=== PATIENT | male | born 1990 | race Caucasian/White ===

== ENCOUNTER 2021-12-21 09:59 | Outpatient (CLI) | payer OTHER, SELFPAY ==
--- NOTE | 2021-12-21 10:05 | RAD_ITS ---
STUDY: X-RAY - LEFT ANKLE REASON FOR EXAM: Male, 31 years old. Sprain. Pain. TECHNIQUE: 3 view(s) of the ankle. COMPARISON: None. FINDINGS: Normal visualized distal tibia and fibula. Normal medial and lateral malleoli. Normal tibiotalar articulation and ankle mortise. Normal visualized talus and calcaneus. The visualized subtalar, talonavicular, calcaneocuboid and tarsal articulations are normal. The soft tissue structures are unremarkable. RAD/Ankle min 3 Views IMPRESSION: Normal x-ray examination of the ankle. Electronically Signed: Nacho Spain MD at 10:22 EST ,
== END 2021-12-21 23:59 | disposition home or self-care (01) ==
PROVIDERS: PCP Family Medicine; Referring Provider Family Medicine; Visit Provider Family Medicine
DX: S93.409A Sprain of unspecified ligament of unspecified ankle, initial encounter (principal)
CPT/HCPCS: 73610

== ENCOUNTER 2021-12-30 21:16 | Observation (INO) | payer OTHER, SELFPAY ==
[2021-12-30 21:16] VITALS: BP 143/86; PULSE 92; RESP 16; TEMP 36.4; O2SAT 99; BMI 31.5
--- NOTE | 2021-12-30 21:36 | CT_ITS ---
We are attempting to reach an attending provider to discuss findings. An addendum with communication details will be sent when the communication is complete. HISTORY: RLQ pain EXAMINATION: CT Abdomen And Pelvis W/ Contrast Injection TECHNIQUE: Helically acquired images were obtained of the abdomen and pelvis following IV contrast. A radiation dose optimization technique was used for this scan. IV Contrast dosage and agent: 100mL Isovue-300 Oral contrast: None. COMPARISON: None FINDINGS: LOWER CHEST: Lung bases with no acute findings. Visualized heart normal size. LIVER: No concerning lesion. GALLBLADDER AND BILIARY TREE: Contracted gallbladder with no calcified stones identified. No significant biliary ductal dilation. KIDNEYS AND URETERS: Normal renal size. No concerning lesion. There is no perinephric inflammation or hydronephrosis. No tract stones identified. Several small calcified pelvic phleboliths noted. ADRENAL GLANDS: Non-enlarged. SPLEEN: Normal size without discrete mass. PANCREAS: No discrete mass or peripancreatic inflammation. BOWEL: Enlarged and inflamed appendix is inferior to cecum within right iliac fossa. Appendix measures up to 10 mm diameter. No bowel obstruction. LYMPH NODES: No enlarged mesenteric or retroperitoneal lymph nodes. PERITONEUM: Trace free fluid within right iliac fossa. No free air or abscess. VESSELS: Major vessels are normal caliber and unremarkable. URINARY BLADDER: Unremarkable. REPRODUCTIVE ORGANS: No pelvic masses. ABDOMINAL WALL: Small umbilical fat hernia. BONES: Intact with no suspicious osseous lesion. CT/Abdomen/Pelvis W IV Cont ONLY IMPRESSION: Appendicitis with no evidence of perforation. Individualized dose optimization techniques were used for this CT. at 2240 Reported and signed by: Jong Nichole MD Electronically Signed: Jong Nichole MD at 22:39 EST ,
--- NOTE | 2021-12-30 21:37 | ED.VIS.GI ---
HPI HPI - GI History of Present Illness Chief Complaint: Abd Pain Informant: patient Abdominal Pain/Flank Pain Onset: Today Context: Gradual Onset Timing: Continuous Quality: Aching Location: RLQ Current Severity: Moderate Maximum Severity: Moderate Worsened by: Car ride Relieved by: Nothing Nausea/Vomiting/Emesis GI Symptom: Negative for Nausea and Vomiting Diarrhea/Melena/Hematochezia GI Symptom: Negative for Diarrhea, Melena and Hematochezia Associated Symptoms Associated Symptoms: Negative for Dysuria, Frequency, Hematuria and Urgency Narrative Narrative: Gradually worsening constant right lower quadrant pain throughout the day. No migration or radiation. Decreased appetite throughout the day. No nausea, vomiting, fevers. No blood in stool, urinary symptoms. No history of any abdominal surgeries. Never had this pain before. Does not have back pain associated with this. [facility] Medical History (Updated 12/30/21 @ 22:[address] Andres Mccurdy MD) IBS (irritable bowel syndrome) Home Medications eluxadoline [Viberzi] 100 mg PO DAILY 12/30/21 [History Last Taken Unknown] Allergy/AdvReac Type Severity Reaction Status Date / Time Penicillins [PCN] Allergy Rash Verified 12/30/21 21:18 Surgical History no surgical history no surgical history Social History Smoking Status: Never smoker ROS ROS ED Constitutional Constitutional ED: Reports anorexia; Denies chills or fever(s) Eyes Eyes: Denies change in vision or diplopia ENT ENT ED: Denies rhinorrhea or sore throat Cardiovascular Cardiovascular: Denies chest pain or palpitations Respiratory/Chest Respiratory/Chest: Denies cough or dyspnea Gastrointestinal Gastrointestinal: Reports abdominal pain; Denies diarrhea, nausea or vomiting Genitourinary Genitourinary ED: Denies dysuria or hematuria Musculoskeletal Musculoskeletal: Denies back pain or neck pain Integumentary Denies abscess or rash Neurologic Neurologic: Denies headache(s), paresthesias or weakness Psychiatric Psychiatric: Denies anxiety or suicidal thoughts EXAM Physical Exam Const Vital Signs: 12/30/21 21:16 Temperature 97.5 F L Temperature Source Temporal Pulse Rate 92 Respiratory Rate 16 Blood Pressure 143/86 H Blood Pressure Mean 105 Pulse Ox 99 Oxygen Delivery Method Room Air Positive well nourished and well developed General Appearance ED: well developed and NAD HEENT Reports moist mucous membranes normocephalic and atraumatic Eyes PERRL and EOMs intact bilaterally Neck full ROM and supple Resp normal respiratory effort and clear to auscultation bilaterally Cardio regular rate, regular rhythm and no murmurs GI non-distended GI Narrative: Tender McBurney's point mostly, also a little to the lateral right upper quadrant and a little distal toward the pelvis but mostly at McBurney's point. Mildly positive Rovsing and obturator signs, grossly positive psoas sign. Negative Alexis's. Auscultation: normoactive bowel sounds Palpation: soft Back/Spine no CVA tenderness General Back: other FROM Extremity normal to inspection General Extremety ED: Negative for edema, pulses abnormal or tenderness General Extremity: Negative for edema or pulses abnormal Neuro oriented x3, CN's II-XII intact bilaterally and no sensory deficits noted Sensorium / Orientation: awake and alert Motor Exam: strength 5/5 throughout Skin no rashes or lesions noted and no wounds MDM MDM MDM Narrative Medical decision making narrative: Work-up is consistent with acute appendicitis. Patient was given some Toradol for pain, as well as some IV fluids. He remained stable clinically and hemodynamically in the emergency department. Discussed with Dr. Sommer along with the CT results, will admit and take to the OR in the morning. Patient has a penicillin allergy so I ordered Cipro and Flagyl to be started. Lab Data Attestation: I reviewed the patient's lab results. Labs: Laboratory Results - last 24 hr 12/30/21 12/30/21 12/30/21 21:20 21:20 21:23 WBC 12.8 H RBC 4.92 Hgb 15.0 Hct 42.6 MCV 86.6 MCH 30.5 MCHC 35.2 RDW Std Deviation 38.0 RDW Coeff of Alex 12.0 Plt Count 260 MPV 9.1 Immature Gran % (Auto) 0.300 Neut % (Auto) 69.6 Lymph % (Auto) 21.4 [place] % (Auto) 6.9 Eos % (Auto) 1.5 Baso % (Auto) 0.3 Absolute Neuts (auto) 8.9 H Absolute Lymphs (auto) 2.75 Nucleated RBC % 0 Sodium 138 Potassium 3.8 Chloride 106 Carbon Dioxide 28.0 Anion Gap 4 L BUN 17 Creatinine 1.12 Estim Creat Clear Calc 103.93 Est GFR (MDRD) Af Amer 98 Est GFR (MDRD) Non-Af 81 BUN/Creatinine Ratio 15.2 Glucose 117 H Calcium 8.8 Urine Color Yellow Urine Clarity Clear Urine pH 6.5 Ur Specific [place] 1.020 Urine Protein Negative Urine Glucose (UA) Normal Urine Ketones Negative Urine Occult Blood Negative Urine Nitrite Negative Urine Bilirubin Negative Urine Urobilinogen Normal Ur Leukocyte Esterase Negative Urine RBC 0-5 SEEN Urine WBC 0-5 SEEN Ur Squamous Epith Cells 0 SEEN Urine Bacteria 0 SEEN Urine Mucus 0 SEEN Radiography Diagnostic Testing: Clinical Impression(s) from Imaging Studies Abdomen/Pelvis CT 12/30/21 21:36 IMPRESSION: Appendicitis with no evidence of perforation. Individualized dose optimization techniques were used for this CT. at 2240 Reported and signed by: Jong Nichole MD Electronically Signed: Jong Nichole MD at 22:39 EST , Discharge Plan Triage Chief Complaint: Abd Pain ED Provider: Andres Mccurdy Dx/Rx/DC Orders Clinical Impression: Acute appendicitis Prescriptions: No Action Viberzi 100 mg Tablet 100 mg PO DAILY RF: 0 Primary Care Provider: Paul Handley Referrals: Paul Handley MD [Primary Care Provider] - Disposition Disposition: Acute Care [facility]
[2021-12-30] MEDS: 0.9% Normal Saline 1,000 ML 1000 ML IV (21:45)
[2021-12-30] MEDS: Ketorolac 15 MG/ML Vial IV (21:45)
[2021-12-30 21:46] LABS: Bacteria 0 SEEN /hpf (None Seen); Mucous, Urine 0 SEEN /hpf (<or=2+); Squamous Epithelial Cells - UA 0 SEEN /hpf (0-5)
[2021-12-30 21:46] LABS: Absolute Lymphocyte Count 2.75 X10^3/uL (0.83-4.51); Absolute Neutrophil Count 8.9 X10^3/uL (2.0-7.7); Basophil# 0.04 X10^3/uL; Basophil% 0.3 % (0-1); Eosinophil# 0.19 X10^3/uL; Eosinophils% 1.5 % (0-5); Hematocrit 42.6 % (40-54); Lymphocyte # 2.75 X10^3/ul (0.83-4.51); Lymphocyte % 21.4 % (19-41); Mean Corp Hgb Conc 35.2 g/dL (32-36); Mean Corpuscular Hgb 30.5 pg (27.0-32.0); Mean Corpuscular Volume 86.6 fL (80-94); Mean Platelet Vol. 9.1 fl (6.2-12.0); Monocyte# 0.88 X10^3/uL; Monocyte% 6.9 % (0-10); NRBC Flagged by Analyzer 0 % (0-5); Neutrophil # 8.93 X10^3/uL (2.7-7.7); Neutrophil % 69.6 % (47-70); Platelet Count 260 K/mm3 (150-450); Red Blood Count 4.92 M/mm3 (4.6-6.2); White Blood Count 12.8 K/mm3 (4.4-11.0)
[2021-12-30 21:47] LABS: Color, Urine Yellow (Yellow); Glucose, Dipstick Normal (Normal); Ketone-Dipstick Negative (Negative); Leukocyte Esterase-Dipstick Negative /ul (Negative); Nitrite-Dipstick Negative (Negative); Occult Blood-Urine Negative /ul (Negative); Protein-Dipstick Negative (Negative); Urine Bilirubin Dipstick Negative (Negative); Urine Clarity Clear (Clear); Urine Urobilinogen Normal (Normal); Urine pH 6.5 (5.0 - 8.0)
[2021-12-30 21:54] LABS: Red Blood Cells-Urine 0-5 SEEN /hpf (0-5); White Blood Cells 0-5 SEEN /hpf (0-5)
[2021-12-30 22:08] LABS: Anion Gap 4 (5-15); BUN 17 mg/dL (7-18); BUN/Creat Ratio 15.2 RATIO (10-20); Calcium,Total 8.8 mg/dL (8.5-10.1); Chloride 106 mmol/L (98-107); Creatinine, Serum 1.12 mg/dL (0.70-1.30); EST Glomerular Filtration Rate 81 mL/min (>60); Est Glom Filt Rate - Afr Amer 98 mL/min (>60); Estimated Creatinine Clearance 103.93 ml/min; Glucose 117 mg/dL (74-106); Potassium 3.8 mmol/L (3.5-5.1); Sodium Level 138 mmol/L (136-145)
[2021-12-30 22:57] VITALS: BP 124/74; PULSE 89; RESP 18; TEMP 36.7; O2SAT 97
[2021-12-30 23:31] VITALS: BMI 30.9
[2021-12-30 23:50] VITALS: BP 128/69; PULSE 79; RESP 16; TEMP 37.1; O2SAT 100
[2021-12-31] VITALS (11 sets, daily range): BP systolic 93–121; BP diastolic 62–73; PULSE 62–90; RESP 12–18; TEMP 36.1–37.3; O2SAT 93–98; BMI 30.9
[2021-12-31] MEDS: Dextrose 5%/0.9% NaCl 1,000 ML 125 ML IV ×3 (00:07→19:36)
[2021-12-31] MEDS: HYDROmorphone 0.5 MG/0.5 ML SYRINGE IV ×3 (00:08→15:37)
--- NOTE | 2021-12-31 08:00 | EX.PCM.CON.S ---
Assessment & Plan Assessment/Plan (1) Acute appendicitis: QUALIFIERS: Acute appendicitis type: with localized peritonitis Appendicitis gangrene presence: without gangrene Appendicitis perforation presence: without perforation Appendicitis abscess presence: without abscess Qualified Code(s): K35.30 - Acute appendicitis with localized peritonitis, without perforation or gangrene PLAN: Plan will be perform a laparoscopic appendectomy. We reviewed the pre-operative plans with the patient. Risks and benefits of the procedure were fully explained, including but not limited to infection, neurovascular injury, continued pain, arthritis, stiffness, need for further surgery, re-injury, DVT, PE, general risks of anesthesia, and loss of the limb or life. The patient understands all the risks and does wish to proceed with written consent. HPI Consult Data Date of Consult: 12/31/21 HPI Narrative HPI Narrative: RAFA GARY, is a 31 M who presents presents with right lower quadrant abdominal pain. This gradually got worse yesterday increasing throughout the day. No migration or radiation has had a decreased appetite throughout the day no nausea vomiting or fevers. He has not noticed any blood in his stool urinary symptoms. He has had no history of abdominal surgeries never had this type of pain before this pain is not associated with anything going into his back. Work-up in the emergency department included a CAT scan which did confirm acute appendicitis without rupture [facility] Medical History IBS (irritable bowel syndrome) Home Medications eluxadoline [Viberzi] 100 mg PO DAILY 12/30/21 [History Last Taken Unknown] Allergy/AdvReac Type Severity Reaction Status Date / Time Penicillins [PCN] Allergy Rash Verified 12/30/21 21:18 Surgical History no surgical history Social History Smoking Status: Never smoker ROS Constitutional Constitutional: Reports fatigue; Denies chills or fever(s) Cardiovascular Cardiovascular: Denies chest pain Respiratory/Chest Respiratory/Chest: Denies cough or dyspnea Gastrointestinal Gastrointestinal: Reports abdominal pain; Denies constipation, diarrhea, nausea or vomiting Genitourinary Genitourinary: Denies change in urinary stream Physical Exam Const alert, oriented x3 and no apparent distress General Appearance: cooperative HEENT normocephalic and head/scalp atraumatic Eyes PERRL and EOMs intact bilaterally Resp clear to auscultation bilaterally Cardio Rate: regular rate Rhythm: regular rhythm GI Palpation: tender McBurney's point and Rovsing's sign and guarding Lab / Micro Data Result Diagrams: 12/30/21 21:20 12/30/21 21:20 Labs: Laboratory Results - last 24 hr 12/30/21 21:20: WBC 12.8 H, RBC 4.92, Hgb 15.0, Hct 42.6, MCV 86.6, MCH 30.5, MCHC 35.2, RDW Std Deviation 38.0, RDW Coeff of Alex 12.0, Plt Count 260, MPV 9.1, Immature Gran % (Auto) 0.300, Neut % (Auto) 69.6, Lymph % (Auto) 21.4, [place] % (Auto) 6.9, Eos % (Auto) 1.5, Baso % (Auto) 0.3, Absolute Neuts (auto) 8.9 H, Absolute Lymphs (auto) 2.75, Nucleated RBC % 0 12/30/21 21:20: Sodium 138, Potassium 3.8, Chloride 106, Carbon Dioxide 28.0, Anion Gap 4 L, BUN 17, Creatinine 1.12, Estim Creat Clear Calc 103.93, Est GFR (MDRD) Af Amer 98, Est GFR (MDRD) Non-Af 81, BUN/Creatinine Ratio 15.2, Glucose 117 H, Calcium 8.8 12/30/21 21:23: Urine Color Yellow, Urine Clarity Clear, Urine pH 6.5, Ur Specific [place] 1.020, Urine Protein Negative, Urine Glucose (UA) Normal, Urine Ketones Negative, Urine Occult Blood Negative, Urine Nitrite Negative, Urine Bilirubin Negative, Urine Urobilinogen Normal, Ur Leukocyte Esterase Negative, Urine RBC 0-5 SEEN, Urine WBC 0-5 SEEN, Ur Squamous Epith Cells 0 SEEN, Urine Bacteria 0 SEEN, Urine Mucus 0 SEEN Micro: Microbiology 12/31/21 00:23 Nasal Secretion SARS-CoV-2 Antigen (Rapid) - Final Radiology Impression Abdomen/Pelvis CT 12/30/21 21:36 IMPRESSION: Appendicitis with no evidence of perforation. Individualized dose optimization techniques were used for this CT. at 2240 Reported and signed by: Jong Nichole MD Electronically Signed: Jong Nichole MD at 22:39 EST , ADDENDUM: 12/30/21 2253 IMPRESSION: Appendicitis with no evidence of perforation. Individualized dose optimization techniques were used for this CT. at 2240 Reported and signed by: Jong Nichole MD N.B. : The above Results were Read Back by Jong Nichole MD to Dr. Kaz MD, and understanding confirmed on 12/30/2021 22:46:39 (ET). Electronically Signed: Jong Nichole MD at 22:39 EST ,
[2021-12-31] MEDS: Lactated Ringers 1,000 ML 15 ML IV ×2 (08:30→09:31)
--- NOTE | 2021-12-31 09:00 | APP_PTH ---
PATIENT: RAFA GARY LOC: [facility] U#:[id number] AGE/SX: 31/M ROOM: AK311 RE12/31/[address]: Dr. Marek Sigala DO : 1990 BED: 1 DIS: 01/01/2022 SPEC #: [id number] RECD: 01/01/22 07:15 STATUS: NIRAJ REAzam #: [id number] ROSY: 12/31/21 09:[address]: Minh Sommer DEPT: SURGICAL PATHOLOGY RECD BY: Vanna Junior ENTERED: 01/01/22 08:44 SP TYPE: APPENDIX OTHR DR: MD Dr. Marek Obrien DO Dr. Paul Nielsen, MD Tissues: Appendix, NOS Procedures: Surgery Specimen Level III Comments: @ Ordering doctor for SUIII edited from to DR.DPEABO Agata SANCHEZ at 01/01/22 1509 @ Submitting doctor edited from to DR.DPEABO Agata SANCHEZ at 01/01/22 1509 HEADER OPERATION: Laparoscopic appendectomy PRE-OP DIAGNOSIS: Acute appendicitis TISSUE SUBMITTED: Appendix MICROSCOPIC DIAGNOSIS Appendix, appendectomy: Acute necrotizing appendicitis. Acute serositis. AM:darius 01/02/2022 MICROSCOPIC DESCRIPTION Slides are reviewed. GROSS DESCRIPTION Received in fixative is one container labeled with the patient's name and designated appendix. The specimen consists of an appendix measuring 8.5 cm in length and 0.8 cm in average diameter. No gross perforations are evident. Serial sections reveal no mass lesions. [employer] sections are submitted in two cassettes. / AM:darius 01/01/2022 TC:2 CPT: 97701
[2021-12-31] MEDS: Bupivacaine Mpf 0.5% 30 ML VIAL (09:40)
--- NOTE | 2021-12-31 09:56 | OP.PCM_ITS ---
Problems Associated Problem List Diagnoses (1) Acute appendicitis: Report of Operation Date of Procedure: 12/31/21 Pre-Operative Diagnosis: Acute appendicitis Post-Operative Diagnosis: Same Surgery/Procedure Performed:: Laparoscopic appendectomy Surgeon: Minh Sommer e m assembler: Dionicio Bowers Type of Anesthesia: General Anesthesiologist: Marek Acosta Specimen's removed: Appendix Drains: None Estimated Blood Loss (mL): < 25 cc Description of Procedure: Patient was brought in the operating room. Placed in the supine position. Under excellent general anesthetic the abdomen was sterilely prepped and draped in usual fashion. Local was injected infraumbilically dissection was carried down to the fascia the fascia grasped with a [place] varies needle was placed inside the abdomen. The abdomen was insufflated to 15 torr. A 10/12 trocar was placed without difficulty. Suprapubic #5 trocar was placed, left lateral lower quadrant #5 trocar was placed. Both of these were placed under direct visualization without injury to underlying structures. Patient was placed in the headdown and rotated to the left position. Patient had a rather long appendix with the distal appendix being inflamed came down on the mesoappendix with the Enseal and then transected the base of the appendix with a 45 linear cutter placed the specimen specimen bag delivered through the umbilical port. Had a slight bleeder at the appendiceal stump I did touch cautery and had good hemostasis from this the mesoappendix area also look like there was good hemostasis. I ran the small bowel no Meckel's diverticulum was identified I irrigated out the pelvis there was no pus located. Trochars were removed under direct visualization good with stasis was noted. Fascia the umbilical port was closed with a [id number] stitch of 0 Vicryl. Skin incisions were closed with subcuticular stitches of 4- 0 Monocryl. Steri-Strips were applied sterile dressings were applied and the patient tolerated the procedure well. Admit VTE Documentation VTE Present on Admission: No VTE Mechan Device Prophylaxis: SCD's VTE Pharm Prophylaxis ordered?: No Reason prophylaxis not ordered:: Treatment Not Indicated
--- NOTE | 2021-12-31 10:03 | DCINST_ITS ---
Discharge Instructions Procedure Appendectomy Diet Discharge Diet: Light diet - advance as tolerated (if you have questions about your diet instructions, please talk to you doctor.) Activity Discharge Activity: May Not Drive (for 3-5 days or while taking narcotic pain meds.) May shower in (days): 1 Dressing / Incision Call your doctor if your incision/area has: Continuous Slow Oozing, Sudden Increased Bleeding, Increased Pain/ Swelling, Increased Redness and Foul Smelling Discharge Call your doctor if you observe: Fever of 101 or Higher Suture Line Care: Avoid Pulling/Pushing and Avoid Pinching/Bending Additional Dressing/Incision Instructions:: Keep dressing clean and dry. Change or remove dressing in 2 days. Leave steri strips for 1 week. May protect with a gauze bandaid. Follow Up Care Please Follow Up With: Elvia Raya PA-C When: Call office to schedule an appointment to be seen in 1 week. Test Results: Test results from this visit will be discussed in further detail at your follow-up appointment, if applicable. Discharge Plan Admission Admit Date/Time: 12/30/21 22:57 Attending Provider: Minh Sommer Primary Care Provider: Paul Handley Discharge Orders/Prescriptions Prescriptions: New oxycodone-acetaminophen [Endocet] 5-325 mg tablet 1 tab PO Q4H PRN (Reason: pain) 5 Days Qty: 20 RF: 0 No Action Viberzi 100 mg Tablet 100 mg PO DAILY RF: 0 Referrals / Follow Up: Paul Handley MD [Primary Care Provider] - Elvia Raya PA-C [PHYSICIAN ACADEMIC SERVICES COORDINATOR] -
[2021-12-31] MEDS: 0.9% Saline Lock 10 ML Syringe IV ×2 (11:21→15:37)
[2021-12-31] MEDS: Ondansetron 4 MG/2 ML Vial IV ×2 (11:21→17:10)
[2021-12-31] MEDS: oxyCODONE 5 MG Tablet 10 MG PO (13:21)
[2022-01-01 03:23] VITALS: BP 117/69; PULSE 72; RESP 16; TEMP 36.6; O2SAT 97
[2022-01-01] MEDS: Dextrose 5%/0.9% NaCl 1,000 ML 125 ML IV (04:44)
[2022-01-01] MEDS: oxyCODONE 5 MG Tablet 10 MG PO ×2 (08:11→14:53)
[2022-01-01 09:30] VITALS: BP 104/64; PULSE 85; RESP 16; TEMP 36.7; O2SAT 96
[2022-01-01] MEDS: HYDROmorphone 0.5 MG/0.5 ML SYRINGE IV (11:53)
--- NOTE | 2022-01-01 12:42 | PCM.PN.SRG ---
Subjective Subjective Pain has improved. Now complaining more of musculoskeletal incisional pain Objective Data Objective Data Dressing is dry patient appropriately tender at incisions Vital Signs: Vital Signs Temp Pulse Resp BP Pulse Ox 98.0 F 85 16 104/64 96 01/01/22 09:30 01/01/22 09:30 01/01/22 09:30 01/01/22 09:30 01/01/22 09:30 Oxygen Delivery Method Room Air Weight: 227 lb 15.327 oz Body Mass Index (BMI) 30.9 Intake & Output: Intake and Output for Last 24 Hours 12/30/21 12/31/21 01/01/22 22:59 23:59 23:59 Intake Total 2506 / 2506 Output Total Balance 2506 / 2506 Lab / Micro Data Result Diagrams: 12/30/21 21:20 12/30/21 21:20 Micro: Microbiology 12/31/21 00:23 Nasal Secretion SARS-CoV-2 Antigen (Rapid) - Final Assessment & Plan Assessment/Plan (1) Acute appendicitis: QUALIFIERS: Acute appendicitis type: with localized peritonitis Appendicitis gangrene presence: without gangrene Appendicitis perforation presence: without perforation Appendicitis abscess presence: without abscess Qualified Code(s): K35.30 - Acute appendicitis with localized peritonitis, without perforation or gangrene PLAN: We will discharge later today.
[2022-01-01 15:30] VITALS: BP 111/68; PULSE 68; RESP 16; TEMP 36.4; O2SAT 95
== END 2022-01-01 16:20 ==
LOC: ED 22:51 → MS3 12-31 10:40
PROVIDERS: Admitting Provider Surgery; Emergency Provider Emergency Medicine; PCP Family Medicine; Referring Provider Surgery
PROC: 0DTJ4ZZ Resection of Appendix, Percutaneous Endoscopic Approach (ICD-10-PCS; CPT 44970; principal; 2021-12-31 09:00)
DX: K35.30 Acute appendicitis with localized peritonitis, without perforation or gangrene (principal); K58.9 Irritable bowel syndrome, unspecified; Z79.899 Other long term (current) drug therapy
CPT/HCPCS: 44970; 00840; 74177; 80048; 81001; 85025; 87426; 88304; 96361; 96365; 96366; 96375; 96376; 99218; 99251; 99283; J7030; J7120; Q9967; A4216; C1760; G0378; G0463; J0744; J2405

== ENCOUNTER → 2022-09-18 | Outpatient (CLI) | payer OTHER, SELFPAY ==
[2022-09-18 12:37] LABS: Hemoglobin 15.4 g/dL (13.0-16.5); Mean Corp Hgb Conc 33.5 g/dL (32-36); Mean Corpuscular Hgb 29.7 pg (27.0-32.0); Mean Corpuscular Volume 88.6 fL (80-94); Mean Platelet Vol. 9.3 fl (6.2-12.0); Platelet Count 273 K/mm3 (150-450); RBC Distribution Width SD 38.8 fl (35.1-43.9); Red Blood Count 5.19 M/mm3 (4.6-6.2); White Blood Count 6.1 K/mm3 (4.4-11.0)
[2022-09-18 13:35] LABS: Anion Gap 7 (5-15); BUN 16 mg/dL (7-18); BUN/Creat Ratio 15.2 RATIO (10-20); Chloride 102 mmol/L (98-107); Creatinine, Serum 1.05 mg/dL (0.70-1.30); EST Glomerular Filtration Rate 87 mL/min (>60); Est Glom Filt Rate - Afr Amer 105 mL/min (>60); Free T3 3.8 pg/mL (2.18-3.98); Glucose 98 mg/dL (74-106); Potassium 4.6 mmol/L (3.5-5.1); Sodium Level 138 mmol/L (136-145); T4 Free Direct 1.05 ng/dL (0.76-1.46)
== END | disposition home or self-care (01) ==
LOC: MFPLAB 11:30
PROVIDERS: PCP Family Medicine; Visit Provider Nurse Practitioner Family
DX: E04.9 Nontoxic goiter, unspecified (principal)
CPT/HCPCS: 36415; 80048; 84439; 84443; 84481; 85027

== ENCOUNTER → 2023-04-09 | Outpatient (CLI) | payer OTHER, SELFPAY | END | disposition home or self-care (01) | PROVIDERS: PCP Family Medicine; Visit Provider Family Medicine | DX: N41.9 Inflammatory disease of prostate, unspecified (principal) | CPT/HCPCS: 87086; 87491; 87591 ==

== ENCOUNTER → 2023-04-26 | Outpatient (CLI) | payer OTHER, SELFPAY ==
--- NOTE | 2023-04-26 13:15 | US_ITS ---
STUDY: ABDOMINAL ULTRASOUND - RIGHT UPPER QUADRANT REASON FOR VISIT: Male, 32 years old epigastric pain TECHNIQUE: Ultrasound evaluation of the right upper quadrant was performed with real-time and static bentley-scale imaging. TECHNICAL QUALITY: Adequate. COMPARISON: None. FINDINGS: Liver: The liver measures 17.1 cm. There is increased echogenicity consistent with fatty infiltration. The bile ducts are within normal limits. There is hepatic color flow. The direction of portal flow is hepatopetal. There is no demonstrated mass lesion. Gallbladder: There is a contracted gallbladder. The gallbladder wall measures 2.8 mm. There is a negative sonographic Alexis''s sign. There is no pericholecystic fluid. There are no gallstones. Common Bile Duct (C.B.D.): The common bile duct measures 3.2 mm. Pancreas: Normal size of the head, body and tail of the pancreas. There is increased echogenicity of the pancreas. There is no demonstrated pancreatic mass or cyst. Right Kidney: Normal size of the right kidney. The right kidney measures 10.6 cm x 7.1 cm x 5.8 cm. Normal renal cortex. The right cortex measures 1.6 cm. There is no demonstrated renal mass or cyst. There is no right hydronephrosis. US/Abdomen Limited IMPRESSION: Fatty infiltration of the liver. Contracted gallbladder. Electronically Signed: Micha Velázquez MD at 14:23 EDT ,
== END | disposition home or self-care (01) ==
LOC: US 13:15
PROVIDERS: PCP Family Medicine; Visit Provider Family Medicine
DX: R10.13 Epigastric pain (principal)
CPT/HCPCS: 76705

== ENCOUNTER → 2023-06-14 | Outpatient (CLI) | payer OTHER, SELFPAY ==
[2023-06-14 10:45] LABS: AST(SGOT) 19 U/L (15-37); Alanine Aminotransfer ALT/SGPT 36 U/L (16-61); Albumin, Serum 3.7 g/dL (3.2-5.0); Alkaline Phosphatase 137 U/L (45-117); Anion Gap 5 (5-15); BUN 15 mg/dL (7-18); BUN/Creat Ratio 15.1 RATIO (10-20); Calcium,Total 8.6 mg/dL (8.5-10.1); Chloride 105 mmol/L (98-107); Cholesterol 196 mg/dL (200); Creatinine, Serum 0.99 mg/dL (0.70-1.30); EST Glomerular Filtration Rate 92 mL/min (>60); Est Glom Filt Rate - Afr Amer 111 mL/min (>60); Globulin 3.6 g/dL (2.2-4.2); Glucose 85 mg/dL (74-106); High Density Lipoprotein 33 mg/dL; PSA,Total - Annual Screen 0.67 ng/mL (0.00-4.00); Potassium 3.7 mmol/L (3.5-5.1); Protein, Total 7.3 g/dL (6.4-8.2); Sodium Level 138 mmol/L (136-145); Triglycerides 235 mg/dL; Very Low Density Lipoprotein 47 mg/dL (5-40)
== END | disposition home or self-care (01) ==
LOC: MFPLAB 08:27
PROVIDERS: PCP Family Medicine; Visit Provider Family Medicine
DX: Z00.00 Encounter for general adult medical examination without abnormal findings (principal); Z12.5 Encounter for screening for malignant neoplasm of prostate
CPT/HCPCS: 36415; 80053; 80061; 84153; G0103

== ENCOUNTER 2023-11-21 09:00 | Day surgery (SDC) | payer OTHER, SELFPAY ==
[2023-11-21] VITALS (10 sets, daily range): BP systolic 116–131; BP diastolic 68–90; PULSE 65–76; RESP 16–18; TEMP 36.2–36.8; O2SAT 92–96; BMI 32.3
[2023-11-21] MEDS: Lactated Ringers 1,000 ML 15 ML IV ×2 (09:23→13:31)
--- NOTE | 2023-11-21 10:19 | PCM.HP.BLA ---
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 Joey Bonilla MD) IBS (irritable bowel syndrome) Surgical History (Updated 10/22/23 @ 08:19 by Anabella Weiss LPN) S/P appendectomy Family History (Updated 10/22/23 @ 08:20 by Anabella Weiss LPN) Uncle Colon cancer 2022Father Thyroid disorderGrandfather Thyroid disorder Social History Smoking Status: Never smoker HPI HPI HPI: Patient is a 32-year-old male here for hernia. The patient notices hernia is at the [facility]. He has a history of laparoscopic appendectomy about 2 years ago. ROS General General: No weight change, appetite, fatigue, colon cancer, breast cancer or weakness HEENT HEENT: No difficulty swallowing, eye injury, eye surgery, swollen glands or hoarseness Endo Endocrine: No thyroid disease, diabetes mellitus, thyroid cancer, Hair loss, heat intolerance or cold intolerance Skin Skin: No rash or changing moles Musc Musculoskeletal: No back problems, arthritis, rheumatoid arthritis, gout or joint pain Cardio Cardiovascular: No murmur, pacemaker, heart disease, atrial fibrillation, high blood pressure, heart attack, heart stent, palpitations, shortness of breat with exertion or chest pain Psych Psychiatric: No depression, anxiety or hearing voices Resp Respiratory: No shortness of breath, No sleep apnea, No cough, No COPD, No asthma, No emphysema and No wheezing Gastro Gastrointestinal: Yes abdominal pain, No nausea or vomiting, No diarrhea, No constipation, No blood in stool, No acid reflux, No hemorrhoids, No ulcers, No gallbladder problem and No black,tarry stools Armen Hematologic: No blood thinners, No blood disorders, No bleeding, No anemia and No blood clots Neuro Neurologic: No system reviewed and no additional complaints, except as documented, No as per HPI, No abnormal gait, No abnormal hearing, No abnormal movements, No abnormal speech, No behavioral changes, No burning sensations, No confusion, No convulsions, No disequilibrium, No dizziness, No localized weakness, No frequent falls, No headache(s), No lack of coordination, No loss of vision, No memory loss, No numbness, No other visual disturbances, No radicular pain, No restless legs, No sensory deficit, No syncope, No tingling, No tremor(s), No weakness and No other Exam Const General: cooperative Orientation: alert and oriented x3 HENMT Head: normal to inspection Neck Neck: normal visual inspection and full ROM Chest Chest palpation & inspection: normal inspection of the chest Resp Effort & Inspection: normal respiratory effort Auscultation: clear to auscultation bilaterally Cardio Rate: regular rate Rhythm: regular rhythm GI Inspection: non-distended Palpation: soft, hernia umbilical and nontender Skin General: no rashes or lesions noted Neuro General: patient alert and patient oriented x3 Extrem General: full ROM Psych Appearance: grossly normal Mental Status: mental status grossly normal Assessment and Plan Assessment and Plan (1) Umbilical hernia: Status: Acute Qualifiers: Obstruction and gangrene presence: without obstruction or gangrene Qualified Code(s): K42.9 - Umbilical hernia without obstruction or gangrene Plan: The patient has an umbilical hernia. Unsure if this is related to his incision from his appendectomy as it appears to be right in the middle of his umbilicus and his incision is inferior to the umbilicus. I discussed umbilical hernia repair with him. I discussed using mesh if the hernia is larger than a centimeter. I discussed the risks including but not limited to bleeding, infection, injury to underlying organs such as the bowel. Joey Bonilla MD Pager: [facility] [address] [place] [address], [address] [place] [address] Office: I have examined the patient and the H&P has been reviewed. There are no clinical changes since date of exam.
[2023-11-21] MEDS: Clindamycin 900 MG/50 ML BAG 75 MG IV (11:55)
--- NOTE | 2023-11-21 12:41 | OP.PCM_ITS ---
Report of Operation Date of Procedure: 11/21/23 Pre-Operative Diagnosis: Umbilical hernia Post-Operative Diagnosis: Umbilical hernia Surgery/Procedure Performed:: Umbilical hernia repair with mesh less than 3 cm Type of Anesthesia: General/Regional Specimen's removed: None Estimated Blood Loss (mL): 5 Description of Procedure: Patient was brought back to the operating room and general anesthesia was used. The abdomen is prepped draped in usual sterile fashion. A curvilinear incision was marked superior to the umbilicus and injected with local anesthetic. Incisi on was made a scalpel and hemostasis was obtained using electrocautery. The umbilical stalk was dissected off of the hernia sac and then it was reflected. The hernia sac was reduced and the fascia was grasped and elevated. The hernia defect was about 1.5 cm. In all directions the preperitoneal space was dissected free. It was difficult inferiorly due to scar tissue from his old surgery. I was able to place a medium Ventralex ST mesh in the preperitoneal space. The mesh was then sutured to the anterior fascia using interrupted 0 PDS sutures. Next the area was irrigated and suctioned dry. There was good hemostasis. The fascia was reapproximated in a transverse fashion using interrupted 0 Nurolon sutures. The subcutaneous tissue was irrigated and suctioned. The skin was closed with interrupted 3-0 Vicryl sutures. Steri- Strips were applied. Bandage was applied. Patient tolerated the procedure well. Grafts/Implants Used: Medium Ventralex ST mesh
--- NOTE | 2023-11-21 12:43 | DCINST_ITS ---
Discharge Instructions Procedure Hernia Diet Discharge Diet: Light diet - advance as tolerated Activity Discharge Activity: May Not Drive (for 2-3 days or while taking narcotic pain meds.) and May Shower (with the bandage in place 1-2 days after surgery.) Lifting Restrictions: 15 pounds for 4 weeks. Additional Activity Instructions:: Climbing stairs is fine, walking is encouraged. Sitting in bed may be uncomfortable. Sitting up using your lateral muscles (sitting up sideways) is usually more comfortable. Do not drive, work heavy equipment of sign legal documents for 24 hours. Pain medications may cause nausea, you should typically eat light foods as you take your pain medications. Pain medications may also cause constipation. If you have difficulty with this, discuss with your doctor. Dressing / Incision Call your doctor if your incision/area has: Continuous Slow Oozing, Sudden Increased Bleeding, Increased Pain/ Swelling, Increased Redness and Foul Smelling Discharge Call your doctor if you observe: Fever of 101 or Higher Suture Line Care: Avoid Pulling/Pushing and Avoid Pinching/Bending Remove Dressing in: 2 days (Remove clear bandages in 2 days, remove Steri-Strips in 7 to 10 days.) Cleanse incision/area with: Soap & Water Follow Up Care Please Follow Up With: Joey Bonilla MD When: Please call to schedule 2 week follow up appointment. [phone] Test Results: Test results from this visit will be discussed in further detail at your follow- up appointment, if applicable. Discharge Plan Admission Attending Provider: Joey Bonilla Primary Care Provider: Paul Handley Instructions Additional Instructions / Restrictions: Alternate ibuprofen and Tylenol for pain, oxycodone for breakthrough Discharge Orders/Prescriptions Prescriptions: New oxycodone 5 mg tablet 5 - 10 mg PO Q6H PRN (Reason: pain) 5 Days Qty: 15 0RF No Action Viberzi 100 mg Tablet 100 mg PO DAILY Referrals / Follow Up: Paul Handley MD [Primary Care Provider] - Disposition Disposition (needs filled in before D/C Order can be placed): Home, Self Care
[2023-11-21] MEDS: Acetaminophen 325 MG Tablet 650 MG PO (14:08)
== END 2023-11-21 16:27 | disposition home or self-care (01) ==
LOC: SDC 09:03 → AC 09:05
PROVIDERS: PCP Family Medicine; Referring Provider Surgery; Visit Provider Surgery
PROC: (CPT 49591; principal; 2023-11-21 10:45)
DX: K42.9 Umbilical hernia without obstruction or gangrene (principal); Z87.19 Personal history of other diseases of the digestive system; Z90.49 Acquired absence of other specified parts of digestive tract
CPT/HCPCS: 49591; 00830; C1781; J7120; J2405

== ENCOUNTER → 2024-05-15 | Outpatient (CLI) | payer OTHER, SELFPAY ==
--- NOTE | 2024-05-15 15:48 | RAD_ITS ---
STUDY: X-RAY CHEST REASON FOR EXAM: Male, 33 years old. Fever and cough TECHNIQUE: 2 PA and lateral views of the chest. COMPARISON: 2014 FINDINGS: The lungs are clear and expanded. There is no demonstrated pleural abnormality. Normal size heart. Normal mediastinum and tila. Normal visualized pulmonary arteries. Normal visualized aortic arch and descending thoracic aorta. Normal visualized thoracic spine. Normal visualized ribs, clavicles, and shoulders. There is no demonstrated abnormality of the visualized soft tissue structures of the upper abdomen. RAD/Chest PA and Lateral IMPRESSION: No acute pulmonary process Electronically Signed: Benjie Bowling MD at 16:36 EDT ,
== END | disposition home or self-care (01) ==
LOC: MTRAD 15:46
PROVIDERS: PCP Family Medicine; Referring Provider Family Medicine; Visit Provider Family Medicine
DX: R05.9 Cough, unspecified (principal)
CPT/HCPCS: 71046

== ENCOUNTER → 2024-12-25 | Outpatient (CLI) | payer BC, SELFPAY ==
--- NOTE | 2024-12-25 09:55 | VDLE_ITS ---
Reason For Study Reason For Study: Swelling BLE RIGHT LEFT CFV is compressible, spontaneous, phasic, competent CFV is compressible, spontaneous, phasic, competent, and demonstrates normal augmentation. and demonstrates normal augmentation. FV is compressible, spontaneous, phasic, competent FV is compressible, spontaneous, phasic, competent and demonstrates normal augmentation. and demonstrates normal augmentation. POP V is compressible, spontaneous, phasic, competent POP V is compressible, spontaneous, phasic, competent and demonstrates normal augmentation. and demonstrates normal augmentation. T/P Trunk is compressible. T/P Trunk is compressible. PTV is compressible. PTV is compressible. RT PerV is compressible. LT PerV is compressible. SFJ is competent and measures 0.72cm x 0.72 cm. SFJ is competent and measures 0.49cm x 0.50 cm. GSV proximal thigh measures 0.64cm x 0.67 cm. GSV proximal thigh measures 0.47cm x 0.44 cm. GSV at knee measures 0.47cm x 0.57 cm. GSV at knee measures 0.25cm x 0.25 cm. GSV above knee is INCOMPETENT for greater than 0.5 GSV above knee is INCOMPETENT for greater than 0.5 seconds. seconds. GSV below knee is competent. GSV below knee is competent. SSV mid calf is competent and measures 0.12cm x 0.14 SSV mid calf is competent and measures 0.24cm x 0.28 cm. cm. Rt GSV in the calf becomes smaller with thickened Lt GSV in the calf becomes smaller with thickened vein uribe. vein uribe. Procedure This is a venous duplex using B-mode, color flow and spectral Doppler. Exam performed in department. Patient was scanned in reverse Trendelenburg position during reflux assessment. A preliminary report was called and/or faxed to Norah CORNEJO. VL/Venous Duplex US - Low Extrem Interpretation Summary Deep veins of the bilateral lower extremity are patent and compressible segment ally. There is no evidence of bilateral lower extremity deep vein thrombosis. The bilateral great saphenous veins appea r patent and compressible segmentally. Positive for reflux in the right great saphenous vein above the knee Positive for reflux in the left great saphenous vein above the knee Ordering Physician: Norah Kan Referring Physician: Norah Kan Performed By: Michelle Sal, REBECCA, RVT
== END | disposition home or self-care (01) ==
LOC: CVS 09:54
PROVIDERS: PCP Family Medicine; Referring Provider Physician Assistant; Visit Provider Physician Assistant
DX: I83.813 Varicose veins of bilateral lower extremities with pain (principal); I87.2 Venous insufficiency (chronic) (peripheral)
CPT/HCPCS: 93970

== ENCOUNTER → 2025-01-12 | Outpatient (CLI) | payer BC, SELFPAY ==
--- NOTE | 2025-01-12 10:54 | VDLE_ITS ---
Reason For Study Reason For Study: Pain RIGHT LEFT GSV is normal. CFV is compressible, spontaneous, phasic, competent, CFV is compressible, spontaneous, phasic, competent and demonstrates normal augmentation. and demonstrates normal augmentation. FV is compressible, spontaneous, phasic, competent and demonstrates normal augmentation. POP V is compressible, spontaneous, phasic, competent and demonstrates normal augmentation. T/P Trunk is compressible. PTV is compressible. RT PerV is compressible. Procedure This is a venous duplex using B-mode, color flow and spectral Doppler. Exam performed in department. A preliminary report was called and/or faxed to CLEMENTE Montanez. VL/Venous Duplex US, Unilateral Interpretation Summary Deep veins of the right lower extremity are patent and compressible segmentally . There is no evidence of right lower extremity deep vein thrombosis. The right great saphenous vein appears patent a nd compressible segmentally. Ordering Physician: Norah Kan Referring Physician: Paul Handley Performed By: Sisi Avalos RVT
== END | disposition home or self-care (01) ==
LOC: CVS 10:53
PROVIDERS: PCP Family Medicine; Referring Provider Physician Assistant; Visit Provider Physician Assistant
DX: I83.813 Varicose veins of bilateral lower extremities with pain (principal); I87.2 Venous insufficiency (chronic) (peripheral); R60.0 Localized edema; M79.604 Pain in right leg
CPT/HCPCS: 93971

== ENCOUNTER → 2025-04-29 | Outpatient (CLI) | payer BC, SELFPAY ==
--- OUTSIDE RECORDS SUMMARY | 2025-04-29 10:08 | XMS RPT_ITS | CCD ---
Author Organization [facility] CliniSyct Care Team Providers Care Plate Washer Name Role Phone Paul Handley MD Primary Care Provider [phone] Blaine Chavarria Unavailable Unavailable Unavailable MD BLAIEN CHAVARRIA Primary Care Unavailabl e MD BLAINE CHAVARRIA Attending Unavailabl e MD BLAINE CHAVARRIA Referring Unavailabl e Chavarria II, Dr. Blaine Basurto Primary Care Unavai lable Chavarria II, Dr. Blaine Basurto Attending Unavai lable Chavarria II, Dr. Blaine Basurto Referring Unavai labDr. Paul Marrufo Primary Care Provider Dr. Paul Handley Referring Provider Dr. Joey Bonilla Attending Provider Dr. Joey Bonilla Referring Provider [phone] Dr. Joey Bonilla Other Provider Emmanuelle FONSECA, Dr. Miller Primary Care Provider Dr. Paul Handley MD Referring Provider Norah Winston Attending Provider Norah Winston Referring Provider Jessy FONSECA, Dr. Jara Attending Provider Paul Handley Referring Unavailable Paul Handley Primary Care Unavailable Norah Kan Attending Unavailable Marek Jiménez Attending Unavailable Loreta, Norah Referring Unavailable Paul Handley Primary Care Unavailable Marek Jiménez Attending Unavailable Norah Kan Referring Unavailable Paul Handley Primary Care Unavailable Paul Handley Primary Care Unavailable Paul Handley Attending Unavailable Paul Handley Referring Unavailable Kan, Norah Referring Unavailable Paul Handley Primary Care Unavailable Norah Kan Attending Unavailable Norah Kan Referring Unavailable Norah Kan Attending Unavailable Paul Handley Primary Care Unavailable Norah Kan Attending Unavailable Paul Handley Primary Care Unavailable Paul Handley Referring Unavailable Allergies Allergy Classification Reported Allergen(s) Allergy Type Date of Onset Reaction(s) Facility (1 source) Penicillins Drug Allergy 07-11-2012 Rash [facility] Work Phone: (7 sources) Penicillins Allergy to substance 12-30-2021 [facility] (3 sources) Penicillins; Translations: [Penicillins] Allergy to drug (finding) [facility] Work Phone: (1 source) Penicillins Drug allergy (disorder) 12-29-2024 [facility] Repository Medications Current Medications Medication Drug Class(es) Dates Sig (Normalized) Sig (Original) eluxadoline 100 mg oral tablet (8 sources) mu-Opioid Receptor Agonist Start: 12-30-2021 take 1 tablet by mouth once daily Eluxadoline (Viberzi) 100 mg Tablet Active 100 mg PO DAILY December 30, 2021 1:00am Start: 11-17-2021 take 1 tablet by lyle th twice daily VIBERZI 100 mg tab Take 100 mg by mouth twice daily. 0 11/17/2021 Active Comment on above: Take 100 mg by mouth twice daily. Completed/Discontinued Medications Medication Drug Class(es) Dates Sig (Normalized) Sig (Original) acetaminophen 325 mg / HYDROcodone bitartrate 5 mg oral tablet (1 source) Opioid Agonist Start: 07-15-2012 End: 01-08-2022 take 1 tablet by mouth every six hours as needed hydrocodone-aceta minophen (NORCO) 5-325 mg per tablet Take 1 tablet by mouth every 6 hours as needed for Pain. 35 tablet 0 07/15/2012 01/08/2022 Discontinued Comment on above: Take 1 tablet by lyle th every 6 hours as needed for Pain. acetaminophen 325 mg / oxyCODONE hydrochloride 5 mg oral tablet (7 sources) Opioid Agonist Start: 12-31-2021 End: 10-22-2023 Oxycodone-Acetami nophen (Endocet) 5-325 mg tablet Discontinued 1 {tbl} PO Q4H as needed for pain 20 5 December 31, 2021 Natalie 2nd, 2024 9:22am ibuprofen 600 mg oral tablet (3 sources) Nonsteroidal Anti-inflammatory Drug Start: 04-17-2023 take 1 tablet by mouth twice daily Ibuprofen 600 MG Oral Tablet Take 1 tablet twice daily Quantity: 20 Refills: 0 Ordered: 17-Apr-2023 Blaine Chavarria II, MD Start : 17-Apr-2023 Active oxyCODONE hydrochloride 5 mg oral tablet (3 sources) Opioid Agonist Start: 11-21-2023 End: 12-01-2024 take 5-10 mg by mouth every six hours as needed for pain Oxycodone 5 mg tablet Discontinued 5 - 10 mg PO EVERY 6 HOURS as needed for pain 04 03November 21, 2023 December 01, 2024 12:21pm sulfamethoxazole 800 mg / trimethoprim 160 mg oral tablet (3 sources) Dihydrofolate Reductase Inhibitor Antibacterial, Sulfonamide Antimicrobial Start: 04-17-2023 take 1 tablet by mouth every twelve hours Sulfamethoxazole- Trimethoprim 800-160 MG Oral Tablet TAKE 1 TABLET Every twelve hours Quantity: 20 Refills: 0 Ordered: 17-Apr-2023 Blaine Chavarria II, MD Start : 17-Apr-2023 Active tamsulosin hydrochloride 0.4 mg oral capsule (3 sources) alpha-Adrenergic Brenna Start: 04-17-2023 take 1 capsule by mouth at bedtime Tamsulosin HCl - 0.4 MG Oral Capsule TAKE 1 CAPSULE Bedtime Quantity: 10 Refills: 0 Ordered: 17-Apr-2023 Blaine Chavarria II, MD Start : 17-Apr-2023 Active Problems Active Problems Problem Classification Problem Date Documented Date Episodic/Chronic Abdominal hernia (4 sources) Umbilical hernia; Translations: [Umbilical hernia without obstruction or gangrene] 10-22-2023 Episodic Appendicitis and other appendiceal conditions (7 sources) Acute appendicitis; Translations: [Unspecified acute appendicitis] 12-31-2021 Episodic Diverticulosis and diverticulitis (1 source) Diverticulosis of large intestine without perforation or abscess without bleeding; Translations: [Dvrtclos of lg int w/o perforation or abscess w/o bleeding] Onset: 05-01-2023 Chronic Genitourinary symptoms and ill-defined conditions (10 sources) Dysuria; Translations: [Dysuria] Onset: 05-01-2023 Episodic Inflammatory conditions of male genital organs (3 sources) Prostatitis; Translations: [Prostatitis, unspecified] Episodic Malaise and fatigue (3 sources) Fatigue; Translations: [Other malaise and fatigue] Episodic Other aftercare (1 source) Surgical follow-up; Translations: [Encounter for other specified surgical aftercare] Episodic Other diseases of veins and lymphatics (2 sources) Vascular insufficiency; Translations: [Venous insufficiency (chronic) (peripheral)] 12-01-2024 Episodic Unclassified (1 source) Cough, unspecified; Translations: [Cough, unspecified] Onset: 06-09-2024 Varicose veins of lower extremity (7 sources) Varicose veins of lower extremity; Translations: [Varicose veins of bilateral lower extremities with pain] Onset: 01-18-2025 12-01-2024 Episodic Past or Other Problems Problem Classification Problem Date Documented Da te Episodic/Chronic Viral infection (1 source) Verruca vulgaris; Translations: [Viral wart, unspecified] Onset: 07-29-2012 07-29-2012 Episodic Results Test Name Value Interpretation Reference Range Facility Venous Duplex US, Unilateral on 01-12-2025 Venous Duplex US, Unilateral [facility] [address] [place] [address] Venous Duplex US, Unilateral 01/12/25 1056 MR#: [id number] Acct: [id number] Name: RAFA GARY Rep #: [id number] : 1990 34 From: Marek Jiménez MD Attending Dr: SHAHAB Montanez Status: REG CLI Ordering Dr: Norah Kan Date: 01/12/25 Location: [facility] Sex: M C Admitted: Reason For Study Reason For Study: Pain RIGHT LEFT GSV is normal. CFV is compressible, spontaneous, phasic, competent, CFV is compressible, spontaneous, phasic, competent and demonstrates normal augmentation. and demonstrates normal augmentation. FV is compressible, spontaneous, phasic, competent and demonstrates normal augmentation. POP V is compressible, spontaneous, phasic, competent and demonstrates normal augmentation. T/P Trunk is compressible. PTV is compressible. RT PerV is compressible. Procedure This is a venous duplex using B-mode, color flow and spectral Doppler. Exam performed in department. A preliminary report was called and/or faxed to SHAHAB Montanez. VL/Venous Duplex US, Unilateral Interpretation Summary Deep veins of the right lower extremity are patent and compressible segmentally. There is no evidence of right lower extremity deep vein thrombosis. The right great saphenous vein appears patent and compressible segmentally. Ordering Physician: Norah Kan Referring Physician: Paul Handley Performed By: Sisi Avalos RVT 01/12/25 1523 Date Marek Jiménez MD CC: SHAHAB Montanez; Dr. Paul Handley MD Date Dictated: 01/12/25 1056 Date Transcribed: 01/12/25 152 Tug Master: Signed Normal [facility] Venous duplex ultrasound rep ortOrdered By: Marek Jiménez on 01-12-[address] [facility] [address] [place] [address] Venous Duplex US, Unilateral 01/12/25 1056 MR#: [id number] Acct: [id number] Name: RAFA GARY Rep #:[id number] : 1990 34 From: Marek Flores Attending Dr: SHAHAB Montanez Stat us: REG CLI Ordering Dr: Norah Kan Date: Location: [facility]S Sex: M C Admitted: Reason For Study Reason For Study: Pain RIGHT LEFT GSV is normal. CFV is compressible, spontaneous, phasic, competent, CFV is compressible, spontaneous, phasic, competent and demonstrates normal augmentation. and demonstrates normal augmentation. FV is compressible, spontaneous, phasic, competent and demonstrates normal augmentation. POP V is compressible, spontaneous, phasic, competent and demonstrates normal augmentation. T/P Trunk is compressible. PTV is compressible. RT PerV is compressible. Procedure This is a venous duplex using B-mode, color flow and spectral Doppler. Exam performed in department. A preliminary report was called and/or faxed to SHAHAB Montanez. VL/Venous Duplex US, Unilateral Interpretation Summary Deep veins of the right lower extremity are patent and compressible segmentally.There is no evidence of right lower extremity deep vein thrombosis. The right great saphenous vein appears patent and compressible segmentally. Ordering Physician: Norah Kan Referring Physician: Paul Handley Performed By: Sisi Avalos RVT 01/12/25 1523 Date _ Marek Jiménez MD CC: SHAHAB Montanez; Dr. Paul Handley MD ~ Date Dictated: 01/12/25 1056 Date Transcribed: 01/12/25 1523 Tug Master: Signed [facility] Work Phone: MR/Shayna 12-29-2024 /KATYA [facility] [address] [place], [place] [address]ric. [address] [place] [address] OFFICE VISIT Date of Service: 12/29/24 MR#: [id number] Acct: [id number] Name: RAFA GARY Rep #: [id number] : 1990 Provider: SHAHAB Montanez Age/Sex: 34/M Location: [facility] Status: Signed Intake Vital Signs 11/21/23 09:24 12/29/24 08:44 Height 6 ft Weight: 229 lb BP 121/70 H Blood Pressure Location Lt brachial Position Sitting Respiration 16 Pulse 82 Pulse Source Monitor Temp 97.8 F Temp Source Temporal Pulse Oximetry (%) 97 Oxygen Delivery Method room air Intake Visit Reasons: Discuss US Is patient in pain?: Yes Allergies Penicillins (PCN) Allergy (Verified 12/29/24 08:46) Rash Medications ???Medication ???Instructions ???Recorded ???Confirmed ???Type eluxadoline 100 mg tablet (Viberzi) 100 mg PO DAILY 12/30/21 History Have you fallen in the past year?: Yes PFSH Medical History Wears glasses Wears dentures History of IBS Non-smoker Leg cramps PONV (postoperative nausea and vomiting) Umbilical hernia Acute appendicitis IBS (irritable bowel syndrome) Surgical History History of umbilical hernia repair History of hand surgery S/P appendectomy Family History Uncle Colon cancer 2022 Father Thyroid disorder Grandfather Thyroid disorder Social History Smoking Status: Never smoker HPI HPI HPI: RAFA GARY, is a 34 M who presents to the office today for follow-up of symptomatic varicose veins. He has had venous reflux study which revealed bilateral above-knee GSV incompetence, bilateral below-knee GSVs small in caliber with wall thickening; no other abnormalities. He has been wearing compression stockings as directed without much improvement in his symptoms. He continues to note aching/throbbing worst at the end of the day. ROS General General: No weight change, appetite, fatigue, colon cancer, breast cancer or weakness HEENT HEENT: No difficulty swallowing, eye injury, eye surgery, swollen glands or hoarseness Endo Endocrine: No thyroid disease, diabetes mellitus, thyroid cancer, Hair loss, heat intolerance or cold intolerance Skin Skin: No rash or changing moles Musc Musculoskeletal: No back problems, arthritis, rheumatoid arthritis, gout or joint pain Cardio Cardiovascular: No murmur, pacemaker, heart disease, atrial fibrillation, high blood pressure, heart attack, heart stent, palpitations, shortness of breath with exertion or chest pain Psych Psychiatric: Yes anxiety; No depression or hearing voices Resp Respiratory: No shortness of breath, No sleep apnea, No cough, No COPD, No asthma, No emphysema and No wheezing Gastro Gastrointestinal: No abdominal pain, No nausea or vomiting, No diarrhea, No constipation, No blood in stool, No acid reflux, No hemorrhoids, No ulcers, No gallbladder problem and No black,tarry stools Armen Hematologic: No blood thinners, No blood disorders, No bleeding, No anemia and No blood clots Neuro Neurologic: No system reviewed and no additional complaints, except as documented, No as per HPI, No abnormal gait, No abnormal hearing, No abnormal movements, No abnormal speech, No behavioral changes, No burning sensations, No confusion, No convulsions, No disequilibrium, No dizziness, Yes localized weakness, No frequent falls, No headache(s), No lack of coordination, No loss of vision, No memory loss, Yes numbness, No other visual disturbances, No radicular pain, No restless legs, No sensory deficit, No syncope, Yes tingling, No tremor(s), No weakness and No other Exam Const General: cooperative, comfortable and no acute distress Orientation: alert, awake and oriented x3 HENMT Head: normal to inspection, normocephalic and atraumatic Ears: hearing grossly normal bilaterally and external ears normal Nose: external nose normal Eyes General: appearance normal, both eyes and all related structures EOM: EOM intact bilaterally Neck Neck: normal visual inspection and trachea midline Carotids: no bruits Resp Effort Inspection: normal respiratory effort, able to speak in complete sentences, not labored, no respiratory distress, no retractions, no stridor and no use of accessory muscles Auscultation: clear to auscultation bilaterally Cardio Rate: regular rate Rhythm: regular rhythm Heart Sounds: no murmurs Bruits: no carotid bruits Pulses: brachial pulses present and radial pulses present Skin General: no rashes or lesions noted Trauma: no lacerations or abrasions Wounds: no wounds Neuro General: gait normal, (more content not included)... Normal [facility] Venous duplex ultrasound rep ortOrdered By: Marek Jiménez on 12-28-[address] [facility] [address] [place] [address] Venous Duplex US - Low Extrem 12/25/24 1014 MR#: [id number] Acct: [id number] Name: RAFA GARY Rep #:[id number] : 1990 34 From: Marek Flores Attending Dr: SHAHAB Montanez Stat us: REG CLI Ordering Dr: Norah Kan Date: Location: CVS Sex: M C Admitted: Reason For Study Reason For Study: Swelling BLE RIGHT LEFT CFV is compressible, spontaneous, phasic, competent CFV is compressible, spontaneous, phasic, competent, and demonstrates normal augmentation. and demonstrates normal augmentation. FV is compressible, spontaneous, phasic, competent FV is compressible, spontaneous, phasic, competent and demonstrates normal augmentation. and demonstrates normal augmentation. POP V is compressible, spontaneous, phasic, competent POP V is compressible, spontaneous, phasic, competent and demonstrates normal augmentation. and demonstrates normal augmentation. T/P Trunk is compressible. T/P Trunk is compressible. PTV is compressible. PTV is compressible. RT PerV is compressible. LT PerV is compressible. SFJ is competent and measures 0.72cm x 0.72 cm. SFJ is competent and measures 0.49cm x 0.50 cm. GSV proximal thigh measures 0.64cm x 0.67 cm. GSV proximal thigh measures 0.47cm x 0.44 cm. GSV at knee measures 0.47cm x 0.57 cm. GSV at knee measures 0.25cm x 0.25 cm. GSV above knee is INCOMPETENT for greater than 0.5 GSV above kneeis INCOMPETENT for greater than 0.5 seconds. seconds. GSV below knee is competent. GSV below kneeis competent. SSV mid calf is competent and measures 0.12cm x 0.14 SSV mid calf is competent and measures 0.24cm x 0.28 cm. cm. Rt GSV in the calf becomes smaller with thickened Lt GSV in the calf becomes smaller with thickened vein uribe. vein uribe. Procedure This is a venous duplex using B-mode, color flow and spectral Doppler. Exam performed in department. Patient was scanned in reverse Trendelenburg position during reflux assessment. A preliminary report was called and/or faxed to Norah CORNEJO. VL/Venous Duplex US - Low Extrem Interpretation Summary Deep veins of the bilateral lower extremity are patent and compressible segmentally. There is no evidence of bilateral lower extremity deep vein thrombosis. The bilateral great saphenous veins appearpatent and compressible segmentally. Positive for reflux in the right great saphenous vein above the knee Positive for reflux in the left great saphenous vein above the knee Ordering Physician: Norah Kan Referring Physician: Norah Kan Performed By: Michelle Sal, REBECCA, RVT 12/28/24 1536 Date _ Marek Jiménez MD CC: SHAHAB Montanez; Dr. Paul Handley MD ~ Date Dictated: 12/25/24 1014 Date Transcribed: 12/28/24 1536 Tug Master: Signed [facility] Work Phone: Venous Duplex US - Low Extre [facility] 12-25-2024 Venous Duplex US - Low Extrem [facility] [address] [place] [address] Venous Duplex US - Low Extrem 12/25/24 1014 MR#: [id number] Acct: [id number] Name: RAFA GARY Rep #: [id number] : 1990 34 From: Marek Jiménez MD Attending Dr: SHAHAB Montanez Status: REG CLI Ordering Dr: Norah Kan Date: 12/25/24 Location: CVS Sex: M C Admitted: Reason For Study Reason For Study: Swelling BLE RIGHT LEFT CFV is compressible, spontaneous, phasic, competent CFV is compressible, spontaneous, phasic, competent, and demonstrates normal augmentation. and demonstrates normal augmentation. FV is compressible, spontaneous, phasic, competent FV is compressible, spontaneous, phasic, competent and demonstrates normal augmentation. and demonstrates normal augmentation. POP V is compressible, spontaneous, phasic, competent POP V is compressible, spontaneous, phasic, competent and demonstrates normal augmentation. and demonstrates normal augmentation. T/P Trunk is compressible. T/P Trunk is compressible. PTV is compressible. PTV is compressible. RT PerV is compressible. LT PerV is compressible. SFJ is competent and measures 0.72cm x 0.72 cm. SFJ is competent and measures 0.49cm x 0.50 cm. GSV proximal thigh measures 0.64cm x 0.67 cm. GSV proximal thigh measures 0.47cm x 0.44 cm. GSV at knee measures 0.47cm x 0.57 cm. GSV at knee measures 0.25cm x 0.25 cm. GSV above knee is INCOMPETENT for greater than 0.5 GSV above knee is INCOMPETENT for greater than 0.5 seconds. seconds. GSV below knee is competent. GSV below knee is competent. SSV mid calf is competent and measures 0.12cm x 0.14 SSV mid calf is competent and measures 0.24cm x 0.28 cm. cm. Rt GSV in the calf becomes smaller with thickened Lt GSV in the calf becomes smaller with thickened vein uribe. vein uribe. Procedure This is a venous duplex using B-mode, color flow and spectral Doppler. Exam performed in department. Patient was scanned in reverse Trendelenburg position during reflux assessment. A preliminary report was called and/or faxed to Norah CORNEJO. VL/Venous Duplex US - Low Extrem Interpretation Summary Deep veins of the bilateral lower extremity are patent and compressible segmentally. There is no evidence of bilateral lower extremity deep vein thrombosis. The bilateral great saphenous veins appear patent and compressible segmentally. Positive for reflux in the right great saphenous vein above the knee Positive for reflux in the left great saphenous vein above the knee Ordering Physician: Norah Kan Referring Physician: Norah Kan Performed By: Michelle Sal, REBECCA, RVT 12/28/24 1536 Date Marek Jiménez MD CC: SHAHAB Montanez; Dr. Paul Handley MD Date Dictated: 12/25/24 1014 Date Transcribed: 12/28/24 1536 Tug Master: Signed [facility] MR/[facility]MS.Son 12-01-2024 /BMS.[facility] [address] [facility] [place] [address] OFFICE VISIT Date of Service: 12/01/24 MR#: [id number] Acct: [id number] Name: RAFA GARY Rep #: [id number] : 1990 Provider: SHAHAB Montanez Age/Sex: 34/M Location: [facility] Status: Signed Intake Vital Signs 11/21/23 09:24 12/01/24 11:32 Height 6 ft Weight: 233 lb BP 131/80 H Blood Pressure Location Lt brachial Position Sitting Respiration 16 Pulse 79 Pulse Source Monitor Temp 98.2 F Temp Source Temporal Pulse Oximetry (%) 96 Oxygen Delivery Method room air Intake Visit Reasons: NEW PATIENT: Varicose Veins Chief Complaint: establish care Is patient in pain?: Yes Allergies Penicillins (PCN) Allergy (Verified 12/01/24 11:36) Rash Medications ???Medication ???Instructions ???Recorded ???Confirmed ???Type eluxadoline 100 mg tablet (Viberzi) 100 mg PO DAILY 12/30/21 History Have you fallen in the past year?: Yes PFSH Medical History Wears glasses Wears dentures History of IBS Non-smoker Leg cramps PONV (postoperative nausea and vomiting) Umbilical hernia Acute appendicitis IBS (irritable bowel syndrome) Surgical History History of umbilical hernia repair History of hand surgery S/P appendectomy Family History Uncle Colon cancer 2022 Father Thyroid disorder Grandfather Thyroid disorder Social History Smoking Status: Never smoker HPI HPI HPI: RAFA GARY, is a 34 M who presents to the office today for evaluation of symptomatic lower extremity varicose veins as referred from his PCP Dr. Handley. He reports that over the last year he has noticed more visible/prominent veins in his lower extremities, right worse than left. Over the last several weeks he has also noticed increased discomfort in his RLE including aching/throbbing in his R calf which gets worse as the day goes on. 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 He does notice some associated swelling which is also worst at the end of the day, typically improves by morning. He does not have any wounds. He has not had any acute redness, warmth, or tenderness. He has been wearing some nonmeasured compression stockings without much benefit for the last 4-6 weeks, has some measured stockings ordered but has not yet received them. He denies any history of prior venous interventions, VTE. He has had hernia repair and appendectomy, no other abdominal procedures. He has had some episodes of back pain but nothing chronic, no known spine disease. He is not diabetic. He does not smoke. ROS General General: No weight change, appetite, fatigue, colon cancer, breast cancer or weakness HEENT HEENT: No difficulty swallowing, eye injury, eye surgery, swollen glands or hoarseness Endo Endocrine: No thyroid disease, diabetes mellitus, thyroid cancer, Hair loss, heat intolerance or cold intolerance Skin Skin: No rash or changing moles Musc Musculoskeletal: No back problems, arthritis, rheumatoid arthritis, gout or joint pain Cardio Cardiovascular: No murmur, pacemaker, heart disease, atrial fibrillation, high blood pressure, heart attack, heart stent, palpitations, shortness of breat with exertion or chest pain Psych Psychiatric: Yes anxiety; No depression or hearing voices Resp Respiratory: No shortness of breath, No sleep apnea, No cough, No COPD, No asthma, No emphysema and No wheezing Gastro Gastrointestinal: No abdominal pain, No nausea or vomiting, No diarrhea, No constipation, No blood in stool, No acid reflux, No hemorrhoids, No ulcers, No gallbladder problem and No black,tarry stools Armen Hematologic: No blood thinners, No blood disorders, No bleeding, No anemia and No blood clots Neuro Neurologic: No system reviewed and no additional complaints, except as documented, No as per HPI, No abnormal gait, No abnormal hearing, No abnormal movements, No abnormal speech, No behavioral changes, No burning sensations, No confusion, No convulsions, No disequilibrium, No dizziness, Yes localized weakness, No frequent falls, No headache(s), No lack of coordination, No loss of vision, No memory loss, No numbness, No other visual disturbances, No radicular pain, No restless legs, No sensory deficit, No syncope, Yes tingling, No tremor(s), No weakness and No other Exam Const General: cooperative, comfortable and no acute distress Orientation: alert, awake and oriented x3 HENMT Head: normal to inspection, normocephalic and atraumatic Ears: hea (more content not included)... Normal [facility] Chest PA and Lateralon 05-15 Chest PA and Lateral [facility] Imaging Services [address] [place] [address] Chest PA and Lateral MR#: [id number] Acct: [id number] Name: RAFA GARY Rep #: [id number] : 1990 M 33 From: Gabriel Bowling MD PCP: Dr. Paul Handley MD Status: [facility] Study: Chest PA and Lateral Date of Exam: 05/15/24 Exam# [id number] Ordering Dr: Paul Handley MD [id number] STUDY: X-RAY CHEST REASON FOR EXAM: Male, 33 years old. Fever and cough TECHNIQUE: 2 PA and lateral views of the chest. COMPARISON: 2014 FINDINGS: The lungs are clear and expanded. There is no demonstrated pleural abnormality. Normal size heart. Normal mediastinum and tila. Normal visualized pulmonary arteries. Normal visualized aortic arch and descending thoracic aorta. Normal visualized thoracic spine. Normal visualized ribs, clavicles, and shoulders. There is no demonstrated abnormality of the visualized soft tissue structures of the upper abdomen. RAD/Chest PA and Lateral IMPRESSION: No acute pulmonary process Electronically Signed: Benjie Bowling MD at 16:36 EDT , CC: Dr. Paul Handley MD Tug Master: Signed Normal [facility] Basophil percentageOrdered B y: Paul Handley on 06-14-2023 Bilirubin [Mass/Vol] 0.30 mg/dL 0.20-1.00 [facility] Comment on above: For patients on eltr ombopag therapy, use of Dimension [place] TBIL is not recommended. Chloride [Moles/Vol] 105 mmol/L 98-107 [facility] Cholesterol [Mass/Vol] 196 mg/dL <200 [facility] Comment on above: <200 mg/dL Desirable 200-240 mg/dL Borderline >240 mg/dL High Risk Glucose [Mass/Vol] 85 mg/dL 74-106 [facility] Potassium [Moles/Vol] 3.7 mmol/L 3.5-5.1 [facility] Protein [Mass/Vol] 7.3 g/dL 6.4-8.2 [facility] Sodium [Moles/Vol] 138 mmol/L 136-145 [facility] Triglyceride [Mass/Vol] 235 mg/dL <199 [facility] Comment on above: The drugs N-Acetylcy steine and Metamizole may falsely depress this assay.Serum Triglycerides Reference Interval Normal <150 mg/dL Borderline high 150 - 199 mg/dL High 200 - 499 mg/dL Very High > or = 500 mg/dL Laboratory - Chemistry and C hemistry - challengeOrdered By: Paul Handley on 06-14-2023 ALP [Catalytic activity/Vol] 137 U/L 45-117 [facility] ALT [Catalytic activity/Vol] 36 U/L 16-61 [facility] CO2 [Moles/Vol] 28.0 mmol/L 21.0-32.0 [facility] Globulin (S) [Mass/Vol] 3.6 g/dL 2.2-4.2 [facility] Urea nitrogen/Creatinine [Mass ratio] 15.1 mg/mg 10-20 [facility] No Panel InformationOrdered By: Paul Handley on 06-14-2023 Estimated GFR (MDRD) Amer 111 mL/min >60 [facility] Comment on above: GFR Calc Estimated GFR (MDRD) Non-Af Amer 92 mL/min >60 [facility] Comment on above: Non- GFR Calc Prostate Specific Antigen Screen 0.67 ng/mL 0.00-4.00 [facility] Comment on above: This test was perfor med using the TPSA assay method [facility]. Values obtained with differentassay methods cannot be used interchangably.When changing PSA assays in the course of monitoring apatient, additional sequential testing should be carriedout to confirm baseline values. Serum or plasma albumin maia urement (mass/volume)Ordered By: Paul Handley on 06-14-2023 Albumin [Mass/Vol] 3.7 g/dL 3.2-5.0 [facility] Serum or plasma albumin/glob ulin mass ratioOrdered By: Paul Handley on 06-14-2023 Albumin/Globulin [Mass ratio] 1.0 {ratio} 0.9-2.4 [facility] Serum or plasma calcium maia urement (mass/volume)Ordered By: Paul Handley on 06-14-2023 Calcium [Mass/Vol] 8.6 mg/dL 8.5-10.1 [facility] Serum or plasma cholesterol in HDL measurement (mass/volume)Ordered By: Paul Handley on 06-14-2023 Cholesterol in HDL [Mass/Vol] 33 mg/dL >40 [facility] Comment on above: The drugs N-Acetylcy steine and Metamizole may falsely depress this assay. Reference Range HDL <40 mg/dL Low HDL Cholesterol HDL >or= 60 mg/dL High HDL Cholesterol Serum or plasma cholesterol in VLDL measurement (mass/volume)Ordered By: Paul Handley on 06-14-2023 Cholesterol in VLDL [Mass/Vol] 47 mg/dL 5-40 [facility] Serum or plasma creatinine m easurement (mass/volume)Ordered By: Paul Handley on 06-14-2023 Creatinine [Mass/Vol] 0.99 mg/dL 0.70-1.30 [facility] Comment on above: The validity of the calculated GFR & GFRAA in patients over 70 years has not been determined. Clinical correlation is essential. Serum or plasma low density lipoprotein (LDL) cholesterol measurement (mass/volume)Ordered By: Paul Handley on 06-14-2023 Cholesterol in LDL [Mass/Vol] 116 mg/dL 0-130 [facility] Serum or plasma urea nitroge n measurement (mass/volume)Ordered By: Paul Handley on 06-14-2023 Urea nitrogen [Mass/Vol] 15 mg/dL 7-18 [facility] Thin prep Papanicolaou smear with manual screeningOrdered By: Paul Handley on 06-14-2023 Thin prep Papanicolaou smear with manual screening 19 U/L 15-37 [facility] Thin prep Papanicolaou smear with manual screening 5 5-[address] [facility] [address] Abdomen and Pelvis with I V Contraston 05-01-2023 CT Abdomen and Pelvis W contrast IV Please click on the link to view the study images Normal CV[facility]ee[facility]sx[facility] Work Phone: CT Abdomen and Pelvis W contrast IV Normal AS-Frwcxnm-Qds [facility] Work Phone: IO UA (automated w/o microsc opy)on 04-17-2023 Protein (U) [Mass/Vol] Negative MP -[facility]rology[facility] Work Phone: IO UA (automated w/o microscopy) Negative LK-Eehrmqp-Oxf [facility] Work Phone: IO UA (automated w/o microscopy) Normal (0.2-1.0 mg/dl) MM-Qclcqno-Efn land Work Phone: IO UA (automated w/o microscopy) 5.5 1 DH-Zczagms-Mhg [facility] Work Phone: IO UA (automated w/o microscopy) 1.030 1 PM-Bhrfuot-Gyp [facility] Work Phone: IO UA (automated w/o microscopy) Clear YW-Aaivfgi-Elz [facility] Work Phone: IO UA (automated w/o microscopy) Yellow JF[facility]Acgvuzx[facility]Upv [facility] Work Phone: Office Visit (Urology)on Follow-up visit Diagnoses/Problems Assessed Hematuria (599.70) (R31.9) Prostatitis (601.9) (N41.9) Dysuria (788.1) (R30.0) Nocturia (788.43) (R35.1) Never a smoker Patient Discussion/Summary PSA ordered Diet changes for prostate health discussed and educational information given. Pros/Cons of prostate health supplements discussed. Treatment options for LUTS reviewed Discussed timed voiding. Discussed fluid and caffeine intake Tx discussed for possible Prostatitis FLomax Rx given Bactrim Rx given NSAIDS RX given ED is not an issue pros/cons of Testosterone replacement reviewed. Replacement options discussed. Questions answered. Available levels reviewed. T level ordered CT ordered for gross hematuria Discussed Cysto-Will hold off F/U After CT Chief Complaint prostatitis History of Present IllnessPatient is here today for possible prostatitis..He states he recently finished an antbx that did not help much. He states he was having gross hematuria but this has cleared up. He has dysuria. He did have some low back pain. No N/V. No pain with ejaculation. No medication for LUT'S as typically these are not an issue. No issues with ED. Enrgy level is good and libido is just Ok... No hx of kidney stones. Review of Systems Eye: negative Respiratory: No shortness of breath, No cough. Cardiovascular: No chest pain Gastrointestinal: No nausea Genitourinary: Negative except as documented in history of present illness. Hematology/Lymphatic s: Patient denies being on blood thinners.. Endocrine: Negative. Immunologic: Not immunocompromised. Musculoskeletal: Integumentary: Negative. Neurologic: Alert and oriented X4. Psychiatric: Negative. Surgical History Problems History of Appendectomy Family History Mother No pertinent family history Father No pertinent family history Social History Problems Never a smoker Allergies Medication Penicillins Recorded By: Audra Callahan; 04/17/2023 7:34:40 AM Current Meds Medication NameInstruction No Reported Medications Vitals Vital Signs Recorded: 17Apr2023 07:34AM Heart Rate65 Kxzfbhxi392 Zryxkhtuf95 Height6 ft Cjmwkq873 lb 6 oz BMI Mbgfxgpjxu36.65 kg/m2 BSA Calculated2.27 Tobacco Useb) No PHQ-2 #1. Over the last 2 weeks have you felt down, depressed or hopeless? (If yes, answer PHQ-9 below)No PHQ-2 #2. Over the last 2 weeks have you felt little interest or pleasure in doing things? (If yes, answer PHQ-9 below)No Falls Screening (Age 18+)a) No falls within the last year Physical Exam A/O x 3 in No apparent distress Constitutional: General appearance normal Respiratory: Respiratory effort is normal Gastrointestinal:Abd omen is not tender Genitourinary: Kidneys: Not palpable Bilaterally Bladder: Not palpable or tender Scrotum: No mass. No Hydrocele Epididymis: No spermatocele. Not tender Testicles: no mass. WNL Urethra: No Discharge Penis: WNL...No lesions. circumcised . one adhesion Prostate: Symmetric. No Nodules. slightly tender Seminal Vesicles: No mass Sphincter Tone: normal Signatures Electronically signed by : Blaine Chavarria II, MD; Apr 17 2023 7:45AM EST (Author) Normal [facility] Tobacco Screening.on 023 Adult depression screening assessment No MP-[facility]rology[facility] Work Phone: Fall risk assessment a) No falls within the last year QX-Amsnnhi-Wly [facility] Work Phone: Tobacco use status CPHS b) No M Q-Fxdyqib-Huk [facility] Work Phone: Culture, urineOrdered By: Dr Az Garcia on 04-11-2023 Bacteria identified Cx Nom (U) Culture exhibits no growth. [facility] Culture, urineOrdered By: Obed Garcia on 04-09-2023 Bacteria identified Cx Nom (U) Culture exhibits no growth. [facility] Basophil percentageon 2021 Chloride [Moles/Vol] 102 mmol/L 98-107 [facility] Work Phone: Glucose [Mass/Vol] 98 mg/dL 74-106 [facility] Work Phone: Potassium [Moles/Vol] 4.6 mmol/L 3.5-5.1 [place] [facility] Work Phone: Sodium [Moles/Vol] 138 mmol/L 136-145 [facility] Work Phone: WBC (Bld) [#/Vol] 6.1 10*3/uL 4.4-11.0 [facility] Work Phone: Blood erythrocytes count (nu mber/volume)on 09-18-2022 RBC (Bld) [#/Vol] 5.19 10*6/uL 4.6-6.2 [facility] Work Phone: Blood hemoglobin measurement (mass/volume)on 09-18-2022 Hemoglobin (Bld) [Mass/Vol] 15.4 g/dL 13.0-16.5 [facility] Work Phone: Blood platelet mean volumeon 09-18-2022 Platelet mean volume (Bld) [Entitic vol] 9.3 fL 6.2-12.0 [facility] Work Phone: Determination of erythrocyte mean corpuscular volume (MCV)on 09-18-2022 MCV (RBC) [Entitic vol] 88.6 fL 80-94 [facility] Work Phone: Hematocrit Auto (Bld) [Volum e fraction]on 09-18-2022 Hematocrit (Bld) [Volume fraction] 46.0 % 40-54 [facility] Work Phone: Laboratory - Chemistry and C hemistry - challengeon 09-18-2022 CO2 [Moles/Vol] 29.0 mmol/L 21.0-32.0 [facility] Work Phone: Free T4 [Mass/Vol] 1.05 ng/dL 0.76-1.46 [facility] Work Phone: Urea nitrogen/Creatinine [Mass ratio] 15.2 mg/mg 10-20 [facility] Work Phone: Laboratory - Hematology and Cell countson 09-18-2022 Erythrocyte distribution width (RBC) [Entitic vol] 38.8 fL 35.1-43.9 [facility] Work Phone: Erythrocyte distribution width (RBC) [Ratio] 12.0 % 11.6-14.6 [facility] Work Phone: MCH (RBC) [Entitic mass] 29.7 pg 27.0-32.0 [facility] Work Phone: MCHC Auto (RBC) [Mass/Vol]on 09-18-2022 MCHC (RBC) [Mass/Vol] 33.5 g/dL 32-36 [facility] Work Phone: No Panel Informationon 09-18 Estimated GFR (MDRD) Amer 105 mL/min >60 [facility] Work Phone: Comment on above: GFR Calc Estimated GFR (MDRD) Non-Af Amer 87 mL/min >60 [facility] Work Phone: Comment on above: Non- GFR Calc Free Triiodothyronine (T3) pg/dL 3.8 pg/mL 2.18-3.98 [facility] Work Phone: Thyroid Stimulating Hormone (TSH) 1.70 uIU/mL 0.358-3.74 [facility] Work Phone: Platelets bldon 09-18-2022 Platelets (Bld) [#/Vol] 273 10*3/uL 150-450 [facility] Work Phone: Serum or plasma calcium maia urement (mass/volume)on 09-18-2022 Calcium [Mass/Vol] 9.0 mg/dL 8.5-10.1 [facility] Work Phone: Serum or plasma creatinine m easurement (mass/volume)on 09-18-2022 Creatinine [Mass/Vol] 1.05 mg/dL 0.70-1.30 [facility] Work Phone: Comment on above: The validity of the calculated GFR & GFRAA in patients over 70 years has not been determined. Clinical correlation is essential. Serum or plasma urea nitroge n measurement (mass/volume)on 09-18-2022 Urea nitrogen [Mass/Vol] 16 mg/dL 7-18 [facility] Work Phone: Thin prep Papanicolaou smear with manual screeningon 09-18-2022 Thin prep Papanicolaou smear with manual screening 7 5-15 [facility] Work Phone: CNOVon 01-08-2022 CNOV Office Visit ([place]) RAFA GARY ([id number]) 1990 M Date Time Provider Department 01/08/22 10:30 AM DARA RAYA During your visit today, we recorded the following information about you: Temperature Pulse Blood pressure Weight 98.1 degrees 90/minute 124/72 104.6 kg Dara Raya PA-C 01/08/2022 11:25 AM Signed FOLLOW UP VISIT - APPENDICITIS NAME: Rafa Guillermo [facility]radha [facility] NO.: [id number] DATE OF SERVICE: 01/08/2022 : 1990 REFERRING PHYSICIAN: Paul Handley MD, Rafa is a patient I am following for acute appendicitis. Dr. Sommer performed a laparoscopic appendectomy on 12/31/21 at [facility]. The patient's appendix demonstrated acute necrotizing appendicitis without perforation. The patient did well post operatively. The patient currently notes no major concerns. his appetite has been good. he denies fever, chills or abdominal pain. he does note some mild incisional discomfort. VITALS: Blood pressure 124/72, pulse 90, temperature 36.7 ?C (98.1 ?F), weight 104.6 kg (230 lb 9.6 oz), SpO2 100 %. On examination, the abdomen is benign. The incisions are healing well without signs of infection or inflammation. There is no right lower quadrant tenderness. Assessment IMPRESSION: status post laparoscopic appendectomy for acute appendicitis PLAN: If the patient notes any problems or signs of wound infections, the patient should contact me immediately. he may return to his regular activities as tolerated. Diagnoses: (Z48.89) Aftercare following surgery (primary encounter diagnosis) (Z90.49) S/P appendectomy Return to Clinic: The patient is instructed to follow-up with me as needed. EMILY Bella PA-C 01/08/2022 11:02 AM Signed The following instructions are important for you related to your office visit today with the [facility]. INSTRUCTIONS FOLLOWING YOUR RECENT SURGERY You should be returning to your regular diet, If you have having persistent issues with tolerating your diet, please contact our office It is not unusual to have incisional pain for the first 1-2 weeks following surgery. If this persists beyond 2 weeks, contact the office You may remove the steri-strips after a shower. You may return to your regular activities. You may drive if you are no longer taking narcotic pain medication. You should perform no lifting greater than 25 lbs for the next 2 weeks. It is not unusual to have loose stools following surgery. This is usually self limited and related to the antibiotics that were given during your surgical procedure. Fiber supplementation and yogurt with active cultures may help you return to regular bowel activity. If you note loose stools persisting for over 2 weeks, or significant cramping or loose bloody stools, contact the office immediately. Contact the office immediately if any of your incisions become increasingly tender, red or have drainage. Again, if you have any difficulties or concerns, contact our office immediately. If you note any additional difficulties, questions, or concerns, you should contact our office immediately @ [phone] and ask to be transferred to the General Surgery department. Referring Provider: LAZARA SOMMER [[id number]] Allergies As of Date: 01/08/2022 Noted Allergy Reaction PENICILLINS 07/11/2012 2 - Rash Date Reviewed: 01/08/2022 Reviewed by: Dara Raya PA-C - Fully Assessed Reason for Visit: Post Op Follow Up [3947] Cmt: appendectomy Primary Visit Diagnosis:Aftercare following surgery [Z48.89] Other Visit Diagnosis:S/P appendectomy [Z90.49] Prescriptions as of 01/08/2022 - VIBERZI 100 mg tab Take 100 mg by mouth twice daily. Problem List As Of Date 01/08/2022 Noted Resolved Verruca [B07.9] 07/29/2012 Other instructions from your clinician: The following instructions are important for you related to your office visit today with the [facility]. INSTRUCTIONS FOLLOWING YOUR RECENT SURGERY You should be returning to your regular diet, If you have having persistent issues with tolerating your diet, please contact our office It is not unusual to have incisional pain for the first 1-2 weeks following surgery. If this persists beyond 2 weeks, contact the office You may remove the steri-strips after a shower. You may return to your regular activities. You may drive if you are no longer taking narcotic pain medication. You should perform no lifting greater than 25 lbs for the next 2 weeks. It is not unusual to have loose stools following surgery. This is usually self limited and related to the antibiotics that were given during your surgical procedure. Fiber supplementation and yogurt with active cultures may help you return to regular bowel activity. If you note loose stools persis (more content not included)... Normal [facility] Jerome 01-02-2022 CNPN Telephone ([place]) RFAA GARY ([id number]) 1990 M Date Time Provider Department 01/02/22 LAZARA SOMMER During your visit today, we recorded the following information about you: Daphne Myers Admin Sec 01/02/2022 2:41 PM Signed Pt has [employer] insurance that is OON for [facility]. His primary care provider is not an OON provider for him. Is it okay to follow up with the primary care office going forward? Dolores Merida RN 01/02/2022 4:57 PM Signed Spoke with Mackenzie. Advised that surgeries come with a global period that will cover the follow up visits. If they choose to follow with their PCP, they are allowed. Dolores Merida RN Allergies As of Date: 01/02/2022 Noted Allergy Reaction PENICILLINS 07/11/2012 2 - Rash Date Reviewed: 07/29/2012 Reviewed by: Marbella Leone Lpn - Fully Assessed Reason for Visit: Patient Question [1477] Prescriptions as of 01/02/2022 - hydrocodone-acetamin ophen (NORCO) 5-325 mg per tablet Take 1 tablet by mouth every 6 hours as needed for Pain. Problem List As Of Date 01/02/2022 Noted Resolved Verruca [B07.9] 07/29/2012 Encounter Status:Closed by DOLORES MERIDA on 01/02/22 Normal [facility] Vital Signs Date Time Vital Sign Value Performing Clinician Faci lity 12-29-2024 08:44-0400 Body temperature 97.8 [degF] Dr. Paul Handley MD Work Phone: [facility] 12-29-2024 08:44-0400 Body weight 103.[address] Paul Handley MD Work Phone: [facility] 12-29-2024 08:44-0400 Diastolic blood pressure 70 mm[Hg] Dr. Paul Handley MD Work Phone: [facility] 12-29-2024 08:44-0400 Heart rate 82 /min Dr. Paul Handley MD Work Phone: [facility] 12-29-2024 08:44-0400 Respiratory rate 16 /min Dr. Paul Handley MD Work Phone: [facility] 12-29-2024 08:44-0400 SaO2% (BldA) [Mass fraction] 97 % Dr. Paul Handley MD Work Phone: [facility] 12-29-2024 08:44-0400 Systolic blood pressure 121 mm[Hg] Dr. Paul Handley MD Work Phone: [phone] [address] 12-01-2024 11:32-0500 Body temperature 98.2 [degF] Dr. Paul Handley MD Work Phone: [phone] [address] 12-01-2024 11:32-0500 Body weight 105.[address] Paul Handley MD Work Phone: [phone] [address] 12-01-2024 11:32-0500 Diastolic blood pressure 80 mm[Hg] Dr. Paul Handley MD Work Phone: [phone])[phone] [place] [address] 12-01-2024 11:32-0500 Heart rate 79 /min Dr. Paul Handley MD Work Phone: [phone])[phone] [place] [address] 12-01-2024 11:32-0500 Respiratory rate 16 /min Dr. Paul Handley MD Work Phone: [facility] 12-01-2024 11:32-0500 SaO2% (BldA) [Mass fraction] 96 % Dr. Paul Handley MD Work Phone: [facility] 12-01-2024 11:32-0500 Systolic blood pressure 131 mm[Hg] Dr. Paul Handley MD Work Phone: [facility] 11-21-2023 15:42-0500 Body temperature 98.3 [degF] Dr. Paul Handley Work Phone: [facility] 11-21-2023 15:42-0500 Diastolic blood pressure 68 mm[Hg] Dr. Paul Handley Work Phone: [facility] 11-21-2023 15:42-0500 Heart rate 75 /min Dr. Paul Handley Work Phone: [facility] 11-21-2023 15:42-0500 Respiratory rate 16 /min Dr. aPul Handley Work Phone: [facility] 11-21-2023 15:42-0500 SaO2% (BldA) [Mass fraction] 96 % Dr. Paul Handley Work Phone: [facility] 11-21-2023 15:42-0500 Systolic blood pressure 116 mm[Hg] Dr. Paul Handley Work Phone: [facility] 11-21-2023 09:24-0500 Body height 182.[address] Paul Handley Work Phone: [facility] 11-21-2023 09:24-0500 Body mass index (BMI) [Ratio] 32.3 kg/m2 Dr. Paul Handley Work Phone: [facility] 11-21-2023 09:24-0500 Body weight 108.[address] Paul Handley Work Phone: [facility] 10-22-2023 08:21-0500 Body mass index (BMI) [Ratio] 33.1 kg/m2 Dr. Paul Handley Work Phone: [facility] 10-22-2023 08:21-0500 Body temperature 97.4 [degF] Dr. Paul Handley Work Phone: [facility] 10-22-2023 08:21-0500 Body weight 110.[address] Paul Handley Work Phone: [facility] 10-22-2023 08:21-0500 Diastolic blood pressure 77 mm[Hg] Dr. Paul Handley Work Phone: [facility] 10-22-2023 08:21-0500 Heart rate 72 /min Dr. Paul Handley Work Phone: [facility] 10-22-2023 08:21-0500 Respiratory rate 18 /min Dr. Paul Handley Work Phone: [facility] 10-22-2023 08:21-0500 SaO2% (BldA) [Mass fraction] 98 % Dr. Paul Handley Work Phone: [facility] 10-22-2023 08:21-0500 Systolic blood pressure 119 mm[Hg] Dr. Paul Handley Work Phone: [facility] 04-17-2023 07:34-0400 Body height 182.88 cm Blaine Chavarria Work Phone: [facility] Work Phone: 04-17-2023 07:34-0400 Body mass index (BMI) [Ratio] 31.65 kg/m2 Blaine Chavarria Work Phone: UB[facility]Bg[facility]zrax[facility]sin[facility] Work Phone: 04-17-2023 07:34-0400 Body surface area Derived from formula 2.27 m2 Blaine Chavarria Work Phone: GR[facility]Tkqdyhe[facility]Ydpnnzw Work Phone: 04-17-2023 07:34-0400 Body weight 105.86 kg Blaine Chavarria Work Phone: [facility]Gkmdh[facility] Work Phone: 04-17-2023 07:34-0400 Diastolic blood pressure 77 mm[Hg] Blaine Chavarria Work Phone: QN-Rnimfzt-Bcgogzy Work Phone: 04-17-2023 07:34-0400 Heart rate 65 /min Blaine Chavarria Work Phone: RB[facility] Work Phone: 04-17-2023 07:34-0400 Systolic blood pressure 124 mm[Hg] Blaine Chavarria Work Phone: FX-Vdwbwnw-Ygqbmfp Work Phone: 01-08-2022 10:46-0400 Body temperature 98.1 [degF] Dara Raya PA-C Work Phone: [facility] 01-08-2022 10:46-0400 Body weight 104.6 kg Dara Elver PA-C Work Phone: [facility] 01-08-2022 10:46-0400 Diastolic blood pressure 72 mm[Hg] Dara Elver PA-C Work Phone: [facility] 01-08-2022 10:46-0400 Heart rate 90 /min Dara Elver PA-C Work Phone: [facility] 01-08-2022 10:46-0400 SaO2% (BldA) [Mass fraction] 100 % Dara Elver PA-C Work Phone: [facility] 01-08-2022 10:46-0400 Systolic blood pressure 124 mm[Hg] Dara [place] PA-C Work Phone: [facility] Encounters Encounter Date Encounter Type Care Provider Facility Start: 01-12-2025 Non-patient / Non-visit Dr. Marek rowley MD -[facility] Start: 01-12-2025 End: 01-12-[address] Paul Handley MD Work Phone: [facility] Work Phone: Start: 01-12-2025 End: 01-12-2025 Patient encounter procedure Norah Kan PA -[facility] Work Phone: Start: 01-12-2025 End: 01-12-2025 ambulatory Norah Kan Facility:[facility] Start: 12-29-2024 End: 12-29-2024 Patient encounter procedure Norah [facility] Work Phone: Start: 12-29-2024 End: 12-29-2024 ambulatory Paul Handley Facility:[facility] Start: 12-25-2024 Non-patient / Non-visit Dr. Marek rowley MD -[facility] Start: 12-25-2024 End: 12-25-[address] Paul Handley MD Work Phone: [facility] Work Phone: Start: 12-25-2024 End: 12-25-2024 Patient encounter procedure Norah [facility] -[facility] Work Phone: Start: 12-25-2024 End: 12-25-2024 ambulatory Norah Kan Facility:[facility] Start: 12-01-2024 End: 12-01-2024 Patient encounter procedure Norah [facility] Work Phone: Start: 12-01-2024 End: 12-01-2024 ambulatory Norah Kan Facility:[facility] Start: 05-15-2024 End: 05-15-2024 ambulatory Paul Handley Facility:[facility] Start: 11-21-2023 Non-patient / Non-visit Dr. Shahab Handley Work Phone: [facility] Start: 11-21-2023 End: 11-21-2023 Admission to same day surgery center Dr. Pual Handley Work Phone: [facility] Start: 11-21-2023 End: 11-21-[address] Paul Handley Work Phone: [facility] Work Phone: Start: 10-22-2023 End: 10-22-[address] Paul Handley Work Phone: [facility] Work Phone: Start: 06-14-2023 End: 06-14-2023 ambulatory [facility] Work Phone: Start: 06-14-2023 End: 06-14-2023 Patient encounter procedure [facility] Start: 05-02-2023 Chart Update Blaine Chavarria Work Phone: MD-[facility] Work Phone: Start: 05-01-[address] Blaine Chavarria II Facility:[id number] Start: 04-26-2023 End: 04-26-2023 ambulatory [facility] Work Phone: Start: 04-26-2023 End: 04-26-2023 Patient encounter procedure [facility] Work Phone: Start: 04-17-2023 Office outpatient ne w 45 minutes Blaine Chavarria Work Phone: [facility] Work Phone: Start: 04-17-2023 ambulatory MD BLAINE CHAVARRIA Fa cility:[id number] Start: 04-09-2023 End: 04-09-2023 ambulatory [facility] Work Phone: Start: 04-09-2023 End: 04-09-2023 Patient encounter procedure [facility], Specimen Start: 09-18-2022 End: 09-18-2022 ambulatory [facility] Work Phone: Start: 09-18-2022 End: 09-18-2022 Patient encounter procedure [facility], Jose Manuel Galicia Start: 01-08-2022 End: 01-08-2022 Patient encounter procedure Dara Raya PA-C Work Phone: General Surgery Comment on above: Aftercare following surgery (Primary Dx); S/P appendectomy Procedures Date Procedure Procedure Detail Performing Clinician Start: 11-21-[address] Paul Handley Work Phone: Start: 04-26-2023 Ultrasonography of abdomen Start: 04-09-2023 Urine culture Appendectomy Blaine Chavarria Work Phone: History of appendectomy S/P appendectomy Dara Raya PA-C Work Phone: Urine culture Plan of Treatment Date Care Activity Detail Author Start: 11-21-2023 Patient discharge [facility] Start: 05-15-2023 FUV, Provider: Blaine Chavarria II, Status: Pen, Time: 7:45 AM FUV, Provider: Blaine Chavarria II, Status: Pen, Time: 7:45 AM [facility] Work Phone: Start: 11-21-2021 COVID-19 VACCINE (3 - Booster for Pfizer series) COVID-19 VACCINE (3 - Booster for Pfizer series) [facility] Start: 06-21-2021 Influenza vaccination INFLUENZA (#1) [facility] Start: 2008 Urine microalbumin profile DTAP,TDAP,TD (1 - Tdap) [facility] Start: 2007 HEPATITIS C SCREENING HEPATITIS C SC CHRISTINAJARVIS [facility] Start: 2007 HIV SCREENING HIV SCREENING [facility] Start: 2001 Adult depression screening assessment DEPRESSION SCREENING [facility] Patient referral [facility] Work Phone: Immunizations Immunization Date Immunization Notes Care Provider Fa cility 06-21-2021 Covid (Pfizer) [facility] 05-30-2021 Covid (Pfizer) [facility] 04-12-2015 tetanus toxoid, redu jeannie diphtheria toxoid, and acellular pertussis vaccine, adsorbed [facility] Payers Date Payer Category Payer Unknown [id number] 2024 Self-pay [id number] 2024 Unknown [id number] 1989 Unknown [id number] 1989 Unknown [id number] Unknown ANTHEM [id number] Unknown [facility] [employer] [id number] Unknown [employer] Unknown [id number] Unknown [id number] Unknown [id number] Unknown [id number] Unknown [id number] Unknown [id number] Unknown [id number] Unknown [id number] Social History Date Type Detail Facility Start: 07-11-2012 End: 11-13-2023 Tobacco smoking status NHIS Never smoked tobacco [facility] Work Phone: Start: 07-11-2012 Tobacco use and exposure Smokeless tobacco non-user [facility] Work Phone: Start: 01-08-2022 Alcohol intake Lifetime non-d claudy (finding) [facility] Start: 01-08-2022 History SDOH Alcohol Frequency 1 [facility] Start: 1990 Sex Assigned At Not on file [facility] Start: 12-29-2021 End: 01-08-2022 Exposure to SARS-CoV-2 (event) Not sure [facility] Start: 12-30-2021 End: 11-13-2023 Tobacco smoking status MOIS Unknown if ever smoked [facility] Start: 1990 Sex Assigned At Male W [facility] Never a smoker Never a smoker -[facility]- [place] Work Phone: Start: 01-07-2025 End: 01-18-2025 Sex Male (finding) [facility] Medical Equipment Procedure Code Equipment Code Equipment Origin al Text Equipment Identifier Dates Repair, hernia, umbilical, using mesh MESH,VENTLEX ST MED 6.4CM FDA Start: 11-21-2023 Repair, hernia, umbilical, using mesh MESH,VENTLEX ST MED 6.4CM FDA Start: 11-21-2023 Appendectomy, laparoscopic 45mm Standard Reload FDA Start: 12-31-2021 Appendectomy, laparoscopic 45mm Standard Reload FDA Start: 12-31-2021 Appendectomy, laparoscopic 45mm Standard Reload FDA Start: 12-31-2021 Appendectomy, laparoscopic 45mm Standard Reload FDA Start: 12-31-2021 Appendectomy, laparoscopic 45mm Standard Reload FDA Start: 12-31-2021 Appendectomy, laparoscopic 45mm Standard Reload FDA Start: 12-31-2021 Appendectomy, laparoscopic 45mm Standard Reload FDA Start: 12-31-2021 Goals Date Patient Goal Desired Activity /State Mental Status Date Assessment Result Facility 11-21-2023 Cognitive function Voice/Name [facility] Work Phone: Clinical Notes 01-08-2022 to 12-01-2024 Note Date & Type Note Facility 12-01-2024 Evaluation note Diagnosis Onset Date Resolution Varicose veins of bilateral lower extremities with pain acute November 212024 11:30am Varicose veins of bilateral lower extremities with pain acute December 8:32am [facility] Work Phone: 1(409) 844-333402-01-2024 Discharge summary Author Joey Bonilla [facility] November 21, 2023 12:46pm Note Date/Time November 21, 2023 1 2:45pm [facility] Medical Records Department [address] [place] [address] Instructions for Home/Discharge Instructions 11/21/23 1243 MR#: [id number] Acct: [id number] Name: RAFA GARY Rep #:[id number] 2 : 1990 33 From: Joey mc MD PCP: Dr. Paul Handley MD Status:REG S DC Discharge Instructions Procedure Hernia Diet Discharge Diet: Light diet - advance as tolerated Activity Discharge Activity: May Not Drive (for 2-3 days or while taking narcotic pain meds.) and May Shower (with the bandage in place 1-2 days after surgery.) Lifting Restrictions: 15 pounds for 4 weeks. Additional Activity Instructions:: Climbing stairs is fine, walking is encouraged. Sitting in bed may be uncomfortable. Sitting up using your lateral muscles (sitting up sideways) is usually more comfortable. Do not drive, work heavy equipment of sign legal documents for 24 hours. Pain medications may cause nausea, you should typically eat light foods as you take your pain medications. Pain medications may also cause constipation. If you have difficulty with this, discuss with your doctor. Dressing / Incision Call your doctor if your incision/area has: Continuous Slow Oozing, Sudden Increased Bleeding, Increased Pain/ Swelling, Increased Redness and Foul Smelling Discharge Call your doctor if you observe: Fever of 101 or Higher Suture Line Care: Avoid Pulling/Pushing and Avoid Pinching/Bending Remove Dressing in: 2 days (Remove clear bandages in 2 days, remove Steri- Stripsin 7 to 10 days.) Cleanse incision/area with: Soap & Water Follow Up Care Please Follow Up With: Joey Bonilla MD When: Please call to schedule 2 week follow up appointment. [phone] Test Results: Test results from this visit will be discussed in further detail at your follow- up appointment, if applicable. Discharge Plan Admission Attending Provider: Joey Bonilla Primary Care Provider: Paul Handley Instructions Additional Instructions / Restrictions: Alternate ibuprofen and Tylenol for pain, oxycodone for breakthrough Discharge Orders/Prescriptions Prescriptions: New oxycodone 5 mg tablet 5 - 10 mg PO Q6H PRN (Reason: pain) 5 Days Qty: 15 0RF No Action Viberzi 100 mg Tablet 100 mg PO DAILY Referrals / Follow Up: Paul Handley MD [Primary Care Provider] - Disposition Disposition (needs filled in before D/C Order can be placed): Home, Self Care 11/21/23 1246<Electronically signed by Joey Bonilla MD>Joey Bonilla MD CC: Dr. Paul Handley MD ~ Signed [facility] Work Phone: 1(831) 167-148102-01-2024 Procedure [facility] 11-21-2023 History and physical note Author Joey Bonilla [facility] November 21, 2023 10:19am Note Date/Time November 21, 2023 1 0:19am [facility] Medical Records Department [address] [place] [id number] History & Physical Exam 11/21/23 1019 MR#: [id number] Acct: [id number] Name: RAFA GARY Rep #:[id number] : 1990 33 From: Joey mc MD PCP: Dr. Paul Handley MD Status:REG S DC Location: AC06-1 History and Physical Date of Admission: 11/21/23 Intake Vital Signs 01/01/2208:00 10/22/2407:21 Height 6 ft 6 ft Weight: 244 lb 4 oz BMI 33.1 BP 119/77 Blood Pressure Location Lt brachial Position Sitting Respiration 18 Pulse 72 Pulse Source Monitor Temp 97.4 F L Temp Source Temporal Pulse Oximetry (%) 98 Oxygen Delivery Method room air Intake Visit Reasons: Hernia Chief Complaint: hernia Silverware Cleaner Required: No Is patient in pain?: No Allergies Penicillins [PCN] Allergy (Verified 10/22/23 08:21) Rash Medications eluxadoline 100 mg tablet (Viberzi) 100 mg PO DAILY 12/30/21 [History Confirmed 10/22/23] PFSH Medical History (Updated 10/22/23 @ 10:[address] Joey Bonilla MD) IBS (irritable bowel syndrome) Surgical History (Updated 10/22/23 @ 08:19 by Anabella Weiss LPN) S/P appendectomy Family History (Updated 10/22/23 @ 08:20 by Anabella Weiss LPN) Uncle Colon cancer 2022Father Thyroid disorderGrandfather Thyroid disorder Social History Smoking Status: Never smoker HPI HPI HPI: Patient is a 32-year-old male here for hernia. The patient notices hernia is atthe bellybutton. He has a history of laparoscopic appendectomy about 2 years ago. ROS General General: No weight change, appetite, fatigue, colon cancer, breast cancer or weakness HEENT HEENT: No difficulty swallowing, eye injury, eye surgery, swollen glands or hoarseness Endo Endocrine: No thyroid disease, diabetes mellitus, thyroid cancer, Hair loss, heat intolerance or cold intolerance Skin Skin: No rash or changing moles Musc Musculoskeletal: No back problems, arthritis, rheumatoid arthritis, gout or joint pain Cardio Cardiovascular: No murmur, pacemaker, heart disease, atrial fibrillation, high blood pressure, heart attack, heart stent, palpitations, shortness of breat withexertion or chest pain Psych Psychiatric: No depression, anxiety or hearing voices Resp Respiratory: No shortness of breath, No sleep apnea, No cough, No COPD, No asthma, No emphysema and No wheezing Gastro Gastrointestinal: Yes abdominal pain, No nausea or vomiting, No diarrhea, No constipation, No blood in stool, No acid reflux, No hemorrhoids, No ulcers, No gallbladder problem and No black,tarry stools Armen Hematologic: No blood thinners, No blood disorders, No bleeding, No anemia and No blood clots Neuro Neurologic: No system reviewed and no additional complaints, except as documented, No as per HPI, No abnormal gait, No abnormal hearing, No abnormal movements, No abnormal speech, No behavioral changes, No burning sensations, No confusion, No convulsions, No disequilibrium, No dizziness, No localized weakness, No frequent falls, No headache(s), No lack of coordination, No loss ofvision, No memory loss, No numbness, No other visual disturbances, No radicular pain, No restless legs, No sensory deficit, No syncope, No tingling, No tremor(s), No weakness and No other Exam Const General: cooperative Orientation: alert and oriented x3 HENMT Head: normal to inspection Neck Neck: normal visual inspection and full ROM Chest Chest palpation & inspection: normal inspection of the chest Resp Effort & Inspection: normal respiratory effort Auscultation: clear to auscultation bilaterally Cardio Rate: regular rate Rhythm: regular rhythm GI Inspection: non-distended Palpation: soft, hernia umbilical and nontender Skin General: no rashes or lesions noted Neuro General: patient alert and patient oriented x3 Extrem General: full ROM Psych Appearance: grossly normal Mental Status: mental status grossly normal Assessment and Plan Assessment and Plan (1) Umbilical hernia: Status: Acute Qualifiers: Obstruction and gangrene presence: without obstruction or gangrene Qualified Code(s): K42.9 - Umbilical hernia without obstruction or gangrene Plan: The patient has an umbilical hernia. Unsure if this is related to his incision from his appendectomy as it appears to be right in the middle of his umbilicus and his incision is inferior to the umbilicus. I discussed umbilical hernia repair with him. I discussed using mesh if the hernia is larger than a centimeter. I discussed the risks including but not limited to bleeding, infection, injury to underlying organs such as the bowel. Joey Bonilla MD Pager: [facility] [address] [place] [address], [address] [place] [phone] Office: I have examined the patient and the H&P has been reviewed. There are no clinicalchanges since date of exam. 11/21/23 1019 <Electronically signed by Joey Bonilla MD> Cosigner Signature (if applicable): CC: Dr. Joey Bonilla MD; Dr. Paul Handley MD~ Signed [facility] Work Phone: 1(213) 875-805403-21-2022 NoteHNO ID: [id number] Author: Dara Raya PA-C Service: ? Author Type: Physician Soldering Technician Type: Progress Notes Filed: 01/08/2022 11:25 AM Note Text: FOLLOW UP VISIT - APPENDICITIS NAME: Rafa Li [facility] NO.: [id number] DATE OF SERVICE: 01/08/2022 : 1990 REFERRING PHYSICIAN: Paul Handley MD, MD Rafa is a patient I am following for acute appendicitis. Dr. Sommer performed a laparoscopic appendectomy on 12/31/21 at [facility]. The patient's appendix demonstrated acute necrotizing appendicitis without perforation. The patient did well post operatively. The patient currently notes no major concerns. his appetite has been good. he denies fever, chills or abdominal pain. he does note some mild incisional discomfort. VITALS: Blood pressure 124/72, pulse 90, temperature 36.7 ?C (98.1 ?F), weight 104.6 kg (230 lb 9.6 oz), SpO2 100 %. On examination, the abdomen is benign. The incisions are healing well without signs of infection or inflammation. There is no right lower quadrant tenderness. Assessment IMPRESSION: status post laparoscopic appendectomy for acute appendicitis PLAN: If the patient notes any problems or signs of wound infections, the patient should contact me immediately. he may return to his regular activities as tolerated. Diagnoses: (Z48.89) Aftercare following surgery (primary encounter diagnosis) (Z90.49) S/P appendectomy Return to Clinic: The patient is instructed to follow-up with me as needed. [facility] Instructions* Patient Instructions* Dara Raya PA-C - 01/08/2022 11:01 AM EDT The following instructions are important for you related to your office visit today with the [facility]. INSTRUCTIONS FOLLOWING YOUR RECENT SURGERY You should be returning to your regular diet, If you have having persistent issues with tolerating your diet, please contact our office It is not unusual to have incisional pain for the first 1-2 weeks following surgery. If this persists beyond 2 weeks, contact the office You may remove the steri-strips after a shower. You may return to your regular activities. You may drive if you are no longer taking narcotic pain medication. You should perform no lifting greater than 25 lbs for the next 2 weeks. It is not unusual to have loose stools following surgery. This is usually self limited and related to the antibiotics that were given during your surgical procedure. Fiber supplementation and yogurt with active cultures may help you return to regular bowel activity. If you note loose stools persisting for over 2 weeks, or significant cramping or loose bloody stools, contact the office immediately. Contact the office immediately if any of your incisions become increasingly tender, red or have drainage. Again, if you have any difficulties or concerns, contact our office immediately. If you note any additional difficulties, questions, or concerns, you should contact our office immediately @ [phone] and ask to be transferred to the General Surgery department. [facility] History of Present illness Narrative* Dara Raya PA-C - 01/08/2022 10:47 AM EDT FOLLOW UP VISIT - APPENDICITIS NAME: Rafa Li [facility] NO.: [id number] DATE OF SERVICE: 01/08/2022 : 1990 REFERRING PHYSICIAN: Paul Handley MD, MD Rafa is a patient I am following for acute appendicitis. Dr. Sommer performed a laparoscopic appendectomy on 12/31/21 at [facility]. The patient's appendix demonstrated acute necrotizing appendicitis without perforation. The patient did well post operatively. The patient currently notes no major concerns. his appetite has been good. he denies fever, chills or abdominal pain. he does note some mild incisional discomfort. VITALS: Blood pressure 124/72, pulse 90, temperature 36.7 C (98.1 F), weight 104.6 kg (230 lb 9.6 oz), SpO2 100 %. On examination, the abdomen is benign. The incisions are healing well without signs of infection orinflammation. There is no right lower quadrant tenderness. Assessment IMPRESSION: status post laparoscopic appendectomy for acute appendicitis PLAN: If the patient notes any problems or signs of wound infections, the patient should contact me immediately. he may return to his regular activities as tolerated. Diagnoses: (Z48.89) Aftercare following surgery (primary encounter diagnosis) (Z90.49) S/P appendectomy Return to Clinic: The patient is instructed to follow-up with me as needed. Dara Raya PA-C documented [facility]* Diagnosis Aftercare following surgery- Primary Encounter for other specified aftercare S/P appendectomy Other postprocedural status documented in this encounter [facility] noteNo assessment information availableWOhio[facility] Work Phone: Evaluation note* Diagnosis Onset Date Resolution Status Umbilical hernia acute [facility] Work Phone: History of Present illness NarrativePatient is here today for possible prostatitis..He states he recently finished an antbx that did not help much. He states he was having gross hematuria but this has cleared up. He has dysuria. He didhave some low back pain. No N/V. No pain with ejaculation. No medication for LUT'S as typically these are not an issue. No issues with ED. Enrgy level is good and libido is just Ok... No hx of kidney stones. [facility] Work Phone: History of Present illness NarrativePatient is here today for possible prostatitis..He states he recently finished an antbx that did not help much. He states he was having gross hematuria but this has cleared up. He has dysuria. He didhave some low back pain. No N/V. No pain with ejaculation. No medication for LUT'S as typically these are not an issue. No issues with ED. Enrgy level is good and libido is just Ok... No hx of kidney stones. [facility] Work Phone: Reason for referral (narrative)No reason for referral information availableWOhioHealth Van [facility] Hospital Work Phone: Summary Purpose Family History No Family History Records FoundUnknown Family Member Name Dates Details No pertinent family history: Mother, Father(V49.89, Z78.9) Status:Active Unknown Family Member Name Dates Details No pertinent family history: Mother, Father(V49.89, Z78.9) Status:Active Unknown Family Member Name Dates Details No pertinent family history: Mother, Father(V49.89, Z78.9) Status:Active Relationship Condition Age at Onset Recorded Date/T juana uncle Malignant neoplasm of colon Unknown father Disorder of thyroid Unknown grandfather Disorder of thyroid Unknown Advance Directives No Advanced Directives Records Found Advance Directive Response Recorded Date/ Time Living Will No December 30, 2021 11:34pm Power of Insurance Adjustor No December 30 11:34pm Advance Directive Response Recorded Date/ Time Living Will No December 31, 2021 12:34am Power of Insurance Adjustor No December 31 12:34am Advance Directive Response Recorded Date/ Time Living Will No November 13 8:48am Power of Insurance Adjustor No November 13, 2023 8:48am Chief Complaint prostatitisprostatitis Chief Complaint and Reason for Visit Chief Complaint EPIGASTRIC PAIN Chief Complaint Hernia Hernia Hernia Reason for Visit Umbilical hernia Chief Complaint Admit Date NEW PATIENT: Varicose Veins November 11:30am SWELLING December 25, 2024 9:50 am Discuss US December 29, 2024 8:3 2am Reason for Visit Admit Date Varicose veins of bilateral lower extrem ities with pain December 01, 2024 11:30am Varicose veins of bilateral lower extrem ities with pain December 29, 2024 8:32am Chief Complaint Admit Date NEW PATIENT: Varicose Veins November 11:30am SWELLING December 25, 2024 9:50 am Discuss US December 29, 2024 8:3 2am STAT Varicose veins of right lower extre mity wit January 12, 2025 10:52am Additional Source Comments Source Comments (unrecognize d section and content) In the event this informatio n is protected by the Federal Confidentiality of Alcohol and Drug Abuse Patient Records regulations: The Federal rules restrict any use of the information to criminally investigate or prosecute any alcohol or drug abuse patient.[facility] Reason for Visit (unrecogniz ed section and content) Reason Comments Post Op Follow Up appendectomy Care Teams (unrecognized sec tion and content) Plate Washer Relationship Specialty Start Date End Date Paul Handley MD [address] [facility] [address] [place] [address] PCP - General Family Practice 01/08/22 Team Status: Active Member Role Status Dates Dr. Marek Leone MD Family Provider Active Dr. Paul Handley MD Primary Care Provider Active Team Status: Inactive Member Role Status Dates Dr. Paul Handley MD Primary Care Provider Active Marin Garcia MD Attending Provider Active Team Status: Inactive Member Role Status Dates Dr. Paul Handley MD Primary Care Provider, Attending Provider Active Team Status: Inactive Member Role Status Dates Dr. Paul Handley MD Primary Care Provider, Referring Provider Active Dr. Joey Bonilla MD Attending Provider Active Team Status: Active Member Role Status Dates Dr. Paul Handley MD Primary Care Provider Active Dr. Joey Bonilla MD Attending Pr ovider, Referring Provider, Other Provider Active Team Status: Inactive Member Role Status Dates Dr. Paul Handley MD Primary Care Provider Active Dr. Joey Bonilla MD Attending Provider, Referr ing Provider Active Team Status: Active Member Role Status Dates Dr. Paul Handley MD Primary Care Provider Active Team Status: Inactive Member Role Status Dates Dr. Paul Handley MD Primary Care Provider Active Start: December 01, 2024 End: December 01, 2024 Dr. Paul Handley MD Referring Provider Active Start: December 01, 2024 End: December 01, 2024 SHAHAB Monatnez Attending Provider Active Star t: December 01, 2024 End: December 01, 2024 Team Status: Inactive Member Role Status Dates Dr. Paul Handley MD Primary Care Provider Active Start: December 25, 2024 End: December 25, 2024 SHAHAB Montanez Attending Provider Active Star t: December 25, 2024 End: December 25, 2024 SHAHAB Montanez Referring Provider Active Star t: December 25, 2024 End: December 25, 2024 Team Status: Active Member Role Status Dates Dr. Paul Handley MD Primary Care Provider Active Start: December 25, 2024 Dr. Marek Jiménez MD Attending Provider Active S tart: December 25, 2024 SHAHAB Montanez Referring Provider Active Star t: December 25, 2024 Team Status: Inactive Member Role Status Dates Dr. Paul Handley MD Primary Care Provider Active Start: December 29, 2024 End: December 29, 2024 Dr. Paul Handley MD Referring Provider Active Start: December 29, 2024 End: December 29, 2024 SHAHAB Montanez Attending Provider Active Star t: December 29, 2024 End: December 29, 2024 Team Status: Inactive Member Role Status Dates Dr. Paul Handley MD Primary Care Provider Active Start: January 12, 2025 End: January 12, 2025 SHAHAB Montanez Attending Provider Active Star t: January 12, 2025 End: January 12, 2025 SHAHAB Montanez Referring Provider Active Star t: January 12, 2025 End: January 12, 2025 Team Status: Active Member Role Status Dates Dr. Paul Handley MD Primary Care Provider Active Start: January 12, 2025 Dr. Marek Jiménez MD Attending Provider Active S tart: January 12, 2025 (unrecognized sect ion and content) No Status Records FoundNo Status Records FoundNo Status Records FoundNo Status Records FoundNo Status Records Found INFORMATION SOURCE (unrecogn ized section and content) DATE CREATED AUTHOR 01/08/2022 [facility] DATE CREATED AUTHOR AUTHOR'S ORGANIZ ATION 04/18/2023 [employer] DATE CREATED AUTHOR AUTHOR'S ORGANIZ ATION 04/20/2023 [facility] DATE CREATED AUTHOR AUTHOR'S ORGANIZ ATION 05/04/2023 [facility] DATE CREATED AUTHOR AUTHOR'S ORGANIZ ATION 01/24/2025 [facility] Goals (unrecognized section and content) Goals may be documented in a n alternate sectionGoals may be documented in an alternate sectionGoals may be documented in an alternate sectionGoals may be documented in an alternate sectionGoals may be documented in an alternate sectionGoals may be documented in an alternate section FOR RECORDS PERTAINING TO PATIENTS WHO ARE OR HAVE BEEN ENROLLED IN A CHEMICAL DEPENDENCY/SUBSTANCEABUSE PROGRAM, SOME INFORMATION MAY BE OMITTED. This clinical summary was aggregated from multiple sources. Caution should be exercised in using it in the provision of clinical care. This summary normalizes information from multiple sources, and as a consequence, information in this document may materially change the coding, format and clinical context of patient data. In addition, data may be omitted in some cases. CLINICAL DECISIONS SHOULD BE BASED ON THE PRIMARY CLINICAL RECORDS. [facility] [employer] [facility]. provides no warranty or guarantee of the accuracy or completeness of information in this document.
[2025-04-29 11:32] LABS: Anion Gap 12 (5-15); BUN 18 mg/dL (4-19); BUN/Creat Ratio 18.4 RATIO (10-20); Calcium,Total 9.2 mg/dL (7.6-11.0); Carbon Dioxide 23.5 mmol/L (21.0-32.0); Chloride 104 mmol/L (98-108); Cholesterol 210 mg/dL (<=200); Glucose 91 mg/dL (70-99); Low Density Lipoprotein Calc. 123 mg/dL; Potassium 4.2 mmol/L (3.3-5.1); Triglycerides 248 mg/dL; Very Low Density Lipoprotein 50 mg/dL (5-40); cholesterol:hdl ratio screen 5.56
== END | disposition home or self-care (01) ==
LOC: MFPLAB 09:06
PROVIDERS: PCP Family Medicine; Referring Provider Family Medicine; Visit Provider Family Medicine
DX: Z00.00 Encounter for general adult medical examination without abnormal findings (principal)
CPT/HCPCS: 36415; 80048; 80061

== ENCOUNTER 2025-09-02 10:16 | Day surgery (SDC) | payer BC, SELFPAY ==
[2025-09-01 07:13] VITALS: BMI 31.8
[2025-09-02 10:33] LABS: Hematocrit 43.7 % (40-54); Hemoglobin 14.8 g/dL (13.0-16.5); Mean Corp Hgb Conc 33.9 g/dL (32-36); Mean Corpuscular Volume 89.2 fL (80-94); Mean Platelet Vol. 9.1 fl (6.2-12.0); Platelet Count 240 K/mm3 (150-450); RBC Distribution Width CV 12.0 % (11.6-14.6); RBC Distribution Width SD 39.2 fl (35.1-43.9); Red Blood Count 4.90 M/mm3 (4.6-6.2); White Blood Count 7.7 K/mm3 (4.4-11.0)
[2025-09-02 10:55] LABS: Anion Gap 7 (5-15); BUN 15 mg/dL (4-19); BUN/Creat Ratio 16.0 RATIO (10-20); Calcium,Total 8.8 mg/dL (7.6-11.0); Carbon Dioxide 27.3 mmol/L (21.0-32.0); Chloride 105 mmol/L (98-108); Estimated Creatinine Clearance 144.53 ml/min (50-250); Glucose 120 mg/dL (70-99); Potassium 4.4 mmol/L (3.3-5.1)
--- NOTE | 2025-09-02 12:52 | PCM.HP.STD ---
HPI - General HPI Narrative RAFA GARY, is a 34 M who presents with bilateral LE painful varicose veins, tightness/heaviness below knee after long periods standing. He has been wearing 20-30 mmHg compression for several months with only minimal improvement. He denies any open wounds or skin color changes. [facility] Medical History Wears glasses Wears dentures History of IBS Non-smoker Leg cramps PONV (postoperative nausea and vomiting) Umbilical hernia Acute appendicitis IBS (irritable bowel syndrome) Home Medications ?Medication ?Instructions ?Recorded ?Last Taken ?Type eluxadoline 100 mg tablet (Viberzi) 100 mg PO DAILY 12/30/21 11/20/23 History rosuvastatin 5 mg tablet 5 mg PO QDAY 06/16/25 Unknown History diazepam 2 mg tablet (Valium) 2 mg PO ONCE PRN anxiety #1 TAB 08/19/25 Unknown Rx Allergy/AdvReac Type Severity Reaction Status Date / Time Penicillins (PCN) Allergy Rash Verified 06/16/25 13:12 Family History Uncle Colon cancer 2022 Father Thyroid disorder Grandfather Thyroid disorder Surgical History History of umbilical hernia repair History of hand surgery S/P appendectomy Social History Smoking Status: Never smoker ROS Constitutional Constitutional: Denies chills, fever(s), frequent falls, lethargy or weakness Eyes Eyes: Denies blind spots, change in vision or loss of vision ENT HEENT: Denies bleeding gums, hoarseness or sore throat Cardiovascular Cardiovascular: Denies abdominal pain, bluish discoloration of hand/feet, chest pain with activity, claudication, cold extremities, cyanosis, dyspnea on exertion, erythema on extremities, irregular heart rhythm, leg edema, leg ulcers, numbness in extremities or weakness in extremities Respiratory/Chest Respiratory/Chest: Denies cough, excessive phlegm production, shortness of breath at rest, shortness of breath with exertion or wheezing Gastrointestinal Gastrointestinal: Denies anorexia, change in stool character, constipation, diarrhea, melena or rectal bleeding Genitourinary Genitourinary: Denies dysuria or hematuria Musculoskeletal Musculoskeletal: Denies abnormal gait Integumentary Integumentary: Reports other Details: ; Denies erythema, non-healing lesions or wounds Neurologic Neurologic: Denies abnormal speech, focal weakness, headache(s), loss of vision, numbness, paresthesias or sensory deficit Hematologic/Lymphatic Hematologic/Lymphatic: Denies easy bleeding, easy bruising or lymphadenopathy Vital Signs Vital Signs Vital Signs: Weight Weight: 235 lb Body Mass Index (BMI) 31.8 Physical Exam Const alert, oriented x3, no apparent distress and healthy appearing General Appearance: cooperative; Negative for combative or lethargic Orientation / Consciousness: awake Exam Limitations: no limitations HEENT Head and Scalp: normocephalic and atraumatic Eyes EOMs intact bilaterally General Eye: normal appearance of both eyes Neck full ROM General: trachea midline Resp normal respiratory effort and no use of accessory muscles Effort and Inspection: Negative for labored, stridor or audible wheezes Cardio regular rate and regular rhythm Back/Spine Cervical Spine: cervical ROM normal Extremity full ROM, normal capillary refill and no clubbing, cyanosis or edema Skin no rashes or lesions noted and no wounds Neuro oriented x3, CN's II-XII intact bilaterally, no focal motor deficits and no sensory deficits noted Psych thought process normal, cooperative, affect normal, speech normal and activity/motor behavior normal Results Lab / Micro Data 09/02/25 10:22 09/02/25 10:22 Labs: Laboratory Results - last 24 hr 09/02/25 10:22: WBC 7.7, RBC 4.90, Hgb 14.8, Hct 43.7, MCV 89.2, MCH 30.2, MCHC 33.9, RDW Std Deviation 39.2, RDW Coeff of Alex 12.0, Plt Count 240, MPV 9.1, Sodium 139, Potassium 4.4, Chloride 105, Carbon Dioxide 27.3, Anion Gap 7, BUN 15, Creatinine 0.90, Estim Creat Clear Calc 144.53, Est GFR (MDRD) Non-Af 114, BUN/Creatinine Ratio 16.0, Glucose 120 H, Calcium 8.8 Assessment & Plan Assessment/Plan (1) Varicose veins of bilateral lower extremities with pain: PLAN: -bilateral GSV thermal ablation
--- NOTE | 2025-09-02 16:09 | OP.PCM_ITS ---
Operative Report (Standard) Operative Information Date of Procedure: 09/02/25 Pre-Operative Diagnosis: Venous insufficiency with painful varicose veins of the bilateral lower extremity Post-Operative Diagnosis: Same Surgery/Procedure Performed: Thermal ablation bilateral great saphenous veins computer processing scheduler: No Type of Anesthesia: Local, Sedation,Conscious and Tumescent Procedure Start Time: 13:00 Procedure Stop Time: 13:50 Select all DRAINS/GRAFTS/IMPLANTS that apply: None Estimated Blood Loss: 3 Specimen collected: No Description of surgery: HPI: Patient is a 34-year-old male with longstanding painful and heavy bilateral lower extremities with varicose veins with pain. He has been refractory to compression garments and he presents now for saphenous thermal ablation. Description of procedure: Upon obtaining informed consent and verification prior to patient procedure site the patient was taken the [facility] where he was positioned prepped and draped in usual sterile fashion. Timeout was performed consultation ministered Versed and fentanyl. The bilateral great saphenous veins were then assessed with ultrasound of a patent and continuous throughout with no significant tortuosity or branching. Skin overlying the right great s aphenous vein in the proximal calf was anesthetized with 1% lidocaine the vessel accessed under ultrasound guidance with a micropuncture needle wire. This then exchanged for a 7 Samoan ablation sheath which was advanced resistance. Next skin overlying the left great saphenous vein in the proximal calf was anesthetized 1% lidocaine the vessel accessed under ultrasound guidance with a micropuncture needle and wire. This then exchanged for a second 7 Samoan ablation sheath which was advanced up resistance. The thermal ablation probe was then advanced via the right saphenous sheath and positioned 3 cm inferior to the saphenofemoral junction. Tumescent solution was then infused in the soft tissue surrounding the great saphenous vein from the saphenofemoral junction to the sheath. The ablation device was then engaged sequentially across the entirety of the length of the treatment zone in the sheath and catheter then removed. The ablation cath was then advanced via the left saphenous access sheath and positioned 3 cm inferior to the saphenofemoral junction. Tumescent solution was then infused in the soft tissue surrounding the great saphenous vein from the saphenofemoral junction to the sheath. The ablation probe was then again sequentially engaged across the entirety of the treatment zone in the sheath. The catheter and sheath were then removed and manual pressure held unti l hemostasis was observed. Ultrasound was used to evaluate the common femoral vein and saphenofemoral junction bilaterally and both were free of any evidence of deep vein thrombosis. [place] dressings and Jose Roberto wrap's were then applied the patient was taken the recovery area plan discharge to home. Surgical Findings: See above Complications Complications: No
== END 2025-09-02 14:50 | disposition home or self-care (01) ==
PROVIDERS: PCP Family Medicine; Referring Provider Surgery Trauma Surgery; Visit Provider Surgery Trauma Surgery
DX: I83.813 Varicose veins of bilateral lower extremities with pain (principal); I87.2 Venous insufficiency (chronic) (peripheral)
CPT/HCPCS: 36415; 36475; 36476; 80048; 85027; 99152; 99153; C1888; C1894

== ENCOUNTER → 2025-09-06 | Outpatient (CLI) | payer BC, SELFPAY ==
--- NOTE | 2025-09-06 07:51 | VDLE_ITS ---
Reason For Study Reason For Study: S/P BLE GSV RF Ablation RIGHT LEFT GSV ankle to mid calf is compressible. GSV prox calf GSV ankle to mid calf is compressible. GSV prox calf to SFJ is dilated and NONCOMPRESSIBLE with to SFJ is dilated and NONCOMPRESSIBLE with intraluminal echoes noted. Finding is consistent with intraluminal echoes noted. Finding is consistent with recent ablation procedure. recent ablation procedure. CFV is compressible, spontaneous, phasic, competent CFV is compressible, spontaneous, phasic, competent, and demonstrates normal augmentation. and demonstrates normal augmentation. FV is compressible, spontaneous, phasic, competent FV is compressible, spontaneous, phasic, competent and demonstrates normal augmentation. and demonstrates normal augmentation. POP V is compressible, spontaneous, phasic, competent POP V is compressible, spontaneous, phasic, competent and demonstrates normal augmentation. and demonstrates normal augmentation. T/P Trunk is compressible. T/P Trunk is compressible. PTV is compressible. PTV is compressible. RT PerV is compressible. LT PerV is compressible. Procedure This is a venous duplex using B-mode, color flow and spectral Doppler. Exam performed in department. The exam was diagnostic. VL/Venous Duplex US - Low Extrem Interpretation Summary Deep veins of the bilateral lower extremities are patent and compressible segme ntally. There is no evidence of bilateral lower extremity deep vein thrombosis. Bilateral great saphenous veins occluded consistent with recent ablations. Ordering Physician: Marek Jiménez Referring Physician: Paul Handley Performed By: Laron Milligan RVT and Student
--- OUTSIDE RECORDS SUMMARY | 2025-09-06 08:10 | XMS RPT_ITS | CCD ---
Author Organization [facility] Care Team Providers Care Senior Controls Engineer Name Role Phone Paul Handley MD Primary Care Provider Blaine Chavarria Unavailable Unavailable Unavailable MD BLAINE CHAVARRIA Primary Care Unavailabl e MD BLAINE CHAVARRIA Attending Unavailabl MD BLAINE Gutierrez Referring Unavailabl e Chavarria II, Dr. Blaine Basurto Primary Care Unavai lable Chavarria KARINE, Dr. Blaine Basurto Attending Unavai lable Chavarria II, Dr. Blaine Basurto Referring Unavai labDr. Paul Marrufo Primary Care Provider Dr. Paul Handley Referring Provider Dr. Joey Bonilla Attending Provider Dr. Joey Bonilla Referring Provider Dr. Joey Bonilla Other Provider Dr. Paul Handley MD Primary Care Provider Dr. Paul Handley MD Referring Provider Norah Winston Attending Provider [phone] Norah Winston Referring Provider [phone] Marek Jiménez MD Attending Provider Dr. Paul Handley MD Primary Care Provider [phone] Norah Winston Attending Provider [phone] Norah Winston Referring Provider [phone] Marek Jiménez MD Attending Provider [phone] Dr. Paul Handley MD Attending Provider Dr. Paul Handley MD Referring Provider Emmanuelle FONSECA, Dr. Miller Primary Care Provider Jessy FONSECA, Dr. Jara Attending Provider Kan, Norah Referring Unavailable Handley, Primary Care Unavailable Jessy, Marek Attending Unavailable Kan, Norah Referring Unavailable Handley, Primary Care Unavailable Jessy, Marek Attending Unavailable Handley, Primary Care Unavailable Jessy, Marek Attending Unavailable [place], Marek Referring Unavailable Jessy, Marek Consulting Unavailable Handley, Referring Unavailable Handley, Primary Care Unavailable Jessy, Marek Attending Unavailable Handley, Primary Care Unavailable Handley, Referring Unavailable Kan, Onrah Attending Unavailable Handley, Referring Unavailable Handley, Primary Care Unavailable Kan, Norah Attending Unavailable Handley, Primary Care Unavailable Kan, Norah Referring Unavailable Kan, Norah Attending Unavailable Handley, Attending Unavailable Handley, Referring Unavailable Handley, Primary Care Unavailable Handley, Primary Care Unavailable [place], Marek Attending Unavailable Jessy, Marek Referring Unavailable Kan, Norah Referring Unavailable Kan, Norah Attending Unavailable Handley, Primary Care Unavailable Allergies Allergy Classification Reported Allergen(s) Allergy Type Date of Onset Reaction(s) Facility (1 source) Penicillins Drug Allergy 07-11-2012 [facility] Work Phone: (9 sources) Penicillins Allergy to substance 12-30-2021 [facility] (3 sources) Penicillins; Translations: [Penicillins] Allergy to drug (finding) [facility] Work Phone: (1 source) Penicillins Drug allergy (disorder) 06-16-2025 [facility] Repository Medications Current Medications Medication Drug Class(es) Dates Sig (Normalized) Sig (Original) eluxadoline 100 mg oral tablet (10 sources) mu-Opioid Receptor Agonist Start: 12-30-2021 take 1 tablet by mouth once daily Eluxadoline (Viberzi) 100 mg Tablet Active 100 mg PO DAILY December 30, 2021 1:00am Start: 11-17-2021 take 1 tablet by lyle twice daily VIBERZI 100 mg tab Take [...] / oxyCODONE hydrochloride 5 mg oral tablet (9 sources) Opioid Agonist Start: 12-31-2021 End: 10-22-2023 Oxycodone-Acetami nophen (Endocet) 5-325 mg tablet Discontinued 1 {tbl} PO Q4H as needed for pain 20 5 0 December 31, 2021 October 22, 2023 9:22am Acute appendicitis Acute appendicitis with localized peritonitis, without perforation or gangrene ibuprofen 600 mg oral tablet (3 sources) Nonsteroidal Anti-inflammatory Drug Start: 04-17-2023 take 1 tablet by mouth twice daily Ibuprofen 600 MG Oral Tablet Take 1 tablet twice daily Quantity: 20 Refills: 0 Ordered: 17-Apr-2023 Blaine Chavarria II, MD Start : 17-Apr-2023 Active oxyCODONE hydrochloride 5 mg oral tablet (5 sources) Opioid Agonist Start: 11-21-2023 End: 12-01-2024 take 5-10 mg by mouth every six hours as needed for pain Oxycodone 5 mg tablet Discontinued 5 - 10 mg PO EVERY 6 HOURS as needed for pain 15 5 0 November 21, 2023 December 01, 2024 12:21pm Umbilical hernia Umbilical hernia without obstruction or gangrene rosuvastatin calcium 5 mg oral tablet (1 source) HMG-CoA Reductase Inhibitor Start: 06-16-2025 take 1 tablet by mouth once daily Rosuvastatin 5 mg tablet Discontinued 5 mg PO daily June 16, 2025 12:00am sulfamethoxazole 800 mg / trimethoprim 160 mg [...] Problem Date Documented Date Episodic/Chronic Abdominal hernia (6 sources) Umbilical hernia; Translations: [Umbilical hernia without obstruction or gangrene] 10-22-2023 Episodic Appendicitis and other appendiceal conditions (9 sources) Acute appendicitis; Translations: [Unspecified acute appendicitis] [...] Episodic Other diseases of veins and lymphatics (4 sources) Vascular insufficiency; Translations: [Venous insufficiency (chronic) (peripheral)] 12-01-2024 Episodic Varicose veins of lower extremity (10 sources) Varicose veins of lower extremity; Translations: [Varicose veins of bilateral lower extremities with pain] Onset: 01-18-2025 12-01-2024 Episodic Past or Other Problems Problem Classification Problem Date Documented Da te Episodic/Chronic Viral infection (1 source) Verruca vulgaris; Translations: [Viral wart, unspecified] Onset: 07-29-2012 07-29-2012 Episodic Results Test Name Value Interpretation Reference Range Facility Basic Metabolic Profile (BMP )on 09-02-2025 BUN/CRE 16.0 RATIO Normal 10-20 [facility] Comment on above: Performed By: #### L 100.0500, L500.2500 #### [facility] [address] [place], [address] Calcium [Mass/Vol] 8.8 mg/dL Normal 7.6-11.[address] [facility] Comment on above: Performed By: #### L 100.0500, L500.2500 #### [facility] [address] [place], [address] Chloride [Moles/Vol] 105 mmol/L Normal 98-108 [facility] Comment on above: Performed By: #### L 100.0500, L500.2500 #### [facility] [address] [place], [address] CO2 [Moles/Vol] 27.3 mmol/L Normal 21.0-32.0 [facility] Comment on above: Performed By: #### L 100.0500, L500.2500 #### [facility] [address] [place], [address] Creatinine [Mass/Vol] 0.90 mg/dL Normal 0.70-1.20 [facility] Comment on above: Performed By: #### L 100.0500, L500.2500 #### [facility] [address] [place], [address] ECRCL 144.53 ml/min Normal 50-250 [facility] Comment on above: Performed By: #### L 100.0500, L500.2500 #### [facility] [address] [place], [address] GAP 7 Normal 5-15 [facility] Comment on above: Performed By: #### L 100.0500, L500.2500 #### [facility] [address] [place], [address] GFR/1.73 sq M.predicted among non-blacks MDRD (S/P/Bld) [Vol rate/Area] 114 mL/min/{1.73_m2} Normal >60 [facility] Comment on above: Result Comment: mL/m in/1.73m2 CKD-EPI Creatinine Equation (2020) Performed By: #### L 100.0500, L500.2500 #### [facility] [address] [place], [address] Glucose [Mass/Vol] 120 mg/dL High 70-[address] [facility] Comment on above: Performed By: #### L 100.0500, L500.2500 #### [facility] [address] [place], [address] Potassium [Moles/Vol] 4.4 mmol/L Normal 3.3-5.1 [facility] Comment on above: Performed By: #### L 100.0500, L500.2500 #### [facility] [address] [place], [address] Sodium [Moles/Vol] 139 mmol/L Normal 133-[address] [facility] Comment on above: Performed By: #### L 100.0500, L500.2500 #### [facility] [address] [place], [address] Urea nitrogen [Mass/Vol] 15 mg/dL Normal 4-19 [facility] Comment on above: Performed By: #### L 100.0500, L500.2500 #### [facility] [address] [place], [address] CBC-Complete Blood Cnt No Di ffon 09-02-2025 Erythrocyte distribution width (RBC) [Ratio] 12.0 % Normal 11.6-14.6 [facility] Comment on above: Performed By: #### L 100.0500, L500.2500 #### [facility] [address] [place], [address] Hematocrit (Bld) [Volume fraction] 43.7 % Normal 40-54 [facility] Comment on above: Performed By: #### L 100.0500, L500.2500 #### [facility] [address] [place], [address] Hemoglobin (Bld) [Mass/Vol] 14.8 g/dL Normal 13.0-16.5 [facility] Comment on above: Performed By: #### L 100.0500, L500.2500 #### [facility] [address] [place], [address] MCH (RBC) [Entitic mass] 30.2 pg Normal 27.0-32.0 [facility] Comment on above: Performed By: #### L 100.0500, L500.2500 #### [facility] [address] [place], [address] MCHC (RBC) [Mass/Vol] 33.9 g/dL Normal 32-36 [facility] Comment on above: Performed By: #### L 100.0500, L500.2500 #### [facility] [address] [place], [address] MCV (RBC) [Entitic vol] 89.2 fL Normal 80-94 [facility] Comment on above: Performed By: #### L 100.0500, L500.2500 #### [facility] [address] [place], [address] Platelet mean volume (Bld) [Entitic vol] 9.1 fL Normal 6.2-12.0 [facility] Comment on above: Performed By: #### L 100.0500, L500.2500 #### [facility] [address] [place], [address] Platelets (Bld) [#/Vol] 240 10*3/uL Normal 150-450 [facility] Comment on above: Performed By: #### L 100.0500, L500.2500 #### [facility] [address] [place], [address] RBC (Bld) [#/Vol] 4.90 10*6/uL Normal 4.6-6.2 [facility] Comment on above: Performed By: #### L 100.0500, L500.2500 #### [facility] [address] [place], [address] RDW SD 39.2 fl Normal 35.1-43.9 [facility] Comment on above: Performed By: #### L 100.0500, L500.2500 #### [facility] [address] [place], [address] WBC (Bld) [#/Vol] 7.7 10*3/uL Normal 4.4-11.[address] [facility] Comment on above: Performed By: #### L 100.0500, L500.2500 #### [facility] [address] [place], [address] MR/BMSRon 06-16-2025 MR/BMSALEXIS [facility] Surgery [address] [place] [address] OFFICE VISIT Date of Service: 06/16/25 MR#: [id number] Acct: [id number] Name: RAFA GARY Guillermo Rep #: [id number] : 1990 Provider: Dr. Marek Jiménez MD Age/Sex: 34/M Location: [facility] Status: Signed Intake Vital Signs 11/21/23 09:24 05/03/25 09:35 06/16/25 13:13 Height 6 ft 6 ft Weight: 235 lb BP 117/82 H Blood Pressure Location Lt brachial Position Sitting Respiration 16 Pulse 90 Pulse Source Monitor Temp 99.1 F Temp Source Temporal Pulse Oximetry (%) 97 Oxygen Delivery Method room air Intake Visit Reasons: Venous insufficiency Chief Complaint: establish care Is patient in pain?: No Allergies Penicillins (PCN) Allergy (Verified 06/16/25 13:12) Rash Medications ???Medication ???Instructions ???Recorded ???Confirmed ???Type eluxadoline 100 mg tablet (Viberzi) 100 mg PO DAILY 12/30/21 History rosuvastatin 5 mg tablet 5 mg PO QDAY 06/16/25 06/16/25 His tory Have you fallen in the past year?: No PFSH Medical History Wears glasses Wears dentures [...] who presents to the office today for follow up of bilateral LE painful varicose veins, tightness/heaviness below knee after long periods standing. He has been wearing 20- 30 mmHg compression for several months with only minimal improvement. He denies any open wounds or skin color changes. ROS General General: No weight change, appetite, [...] with exertion or chest pain Psych Psychiatric: No depression, [...] and No other Exam Const General: cooperative, healthy appearing, comfortable, no acute distress and well developed Nutritional Appearance: well nourished Orientation: alert, awake and oriented x3 HENMT Head: normocephalic and atraumatic Ears: hearing grossly normal bilaterally Nose: external nose normal Eyes General: appearance normal, both eyes and all related structures EOM: EOM intact bilaterally Neck Neck: normal visual inspection and trachea midline Resp Effort Inspection: normal respiratory effort, able to speak in complete sentences, symmetric chest movement, no audible wheezes, not labored, no stridor and no use of accessory muscles Cardio Rate: regular rate Rhythm: regular rhythm Pulses: brachial pulses present, radial pulses present, popliteal pulses present, posterior tibial pulses present and dorsalis pedis present Skin General: no rashes or lesions noted and no erythema Wounds: no wounds Neuro Cranial Nerves: CN's II-XI intact bilaterally and E (more content not included)... Normal [facility] Anion gap in Serum or Plasma Ordered By: Paul Handley on 04-29-2025 Anion gap [Moles/Vol] 12 mmol/L 03-04 [facility] BUN/creatinine ratioOrdered By: Paul Handley on 04-29-2025 Urea nitrogen/Creatinine [Mass ratio] 18.4 mg/mg - [facility] Basic Metabolic Profile (BMP )on 04-29-2025 BUN/CRE 18.4 RATIO Normal 10-20 [facility] Comment on above: Performed By: #### L 500.4100, L500.2500 #### [facility] [address] [place], [address] Calcium [Mass/Vol] 9.2 mg/dL Normal 7.6-11.[address] [facility] Comment on above: Performed By: #### L 500.4100, L500.2500 #### [facility] [address] [place], [address] Chloride [Moles/Vol] 104 mmol/L Normal 98-108 [facility] Comment on above: Performed By: #### L 500.4100, L500.2500 #### [facility] [address] [place], [address] CO2 [Moles/Vol] 23.5 mmol/L Normal 21.0-32.0 [facility] Comment on above: Performed By: #### L 500.4100, L500.2500 #### [facility] [address] [place], [address] Creatinine [Mass/Vol] 1.00 mg/dL Normal 0.70-1.20 [facility] Comment on above: Performed By: #### L 500.4100, L500.2500 #### [facility] [address] [place], [address] GAP 12 Normal 5-15 [facility] Comment on above: Performed By: #### L 500.4100, L500.2500 #### [facility] [address] [place], [address] GFR/1.73 sq M.predicted among non-blacks MDRD (S/P/Bld) [Vol rate/Area] 101 mL/min/{1.73_m2} Normal >60 [facility] Comment on above: Result Comment: mL/m in/1.73m2 CKD-EPI Creatinine Equation (2020) Performed By: #### L 500.4100, L500.2500 #### [facility] [address] [place], [address] Glucose [Mass/Vol] 91 mg/dL Normal 70-[address] [facility] Comment on above: Performed By: #### L 500.4100, L500.2500 #### [facility] [address] [place], [address] Potassium [Moles/Vol] 4.2 mmol/L Normal 3.3-5.1 [facility] Comment on above: Performed By: #### L 500.4100, L500.2500 #### [facility] [address] [place], [address] Sodium [Moles/Vol] 139 mmol/L Normal 133-[address] [facility] Comment on above: Performed By: #### L 500.4100, L500.2500 #### [facility] [address] [place], [address] Urea nitrogen [Mass/Vol] 18 mg/dL Normal 4-19 [facility] Comment on above: Performed By: #### L 500.4100, L500.2500 #### [facility] [address] [place], [address] Calculated very low density lipoprotein (VLDL) cholesterol measurementOrdered By: Paul Handley on 04-29-2025 Calculated very low density lipoprotein (VLDL) cholesterol measurement 50 mg/dL High 5-40 [facility] Carbon dioxide, total [Moles /volume] in Central venous bloodOrdered By: Paul Handley on 04-29-2025 CO2 [Moles/Vol] 23.5 mmol/L 21.0-32.0 [facility] Chloride assayOrdered By: Shahab Handley on 04-29-2025 Chloride [Moles/Vol] 104 mmol/L 98-108 [facility] [place] Glomerular filtration rate ( GFR) estimation/1.73 sq m using serum, plasma, or whole bOrdered By: Paul Handley on 04-29-2025 GFR/1.73 sq M.predicted among non-blacks MDRD (S/P/Bld) [Vol rate/Area] 101 mL/min/{1.73_m2} >60 [facility] Comment on above: mL/min/1.73m2 CKD-EP I Creatinine Equation (2020) LDL calc ser/plasOrdered By: Paul Handley on 04-29-2025 Cholesterol in LDL [Mass/Vol] 123 mg/dL [facility] Comment on above: Wqkkqvqeaq=065-055 m g/dL & Higher Oopx=298 mg/dL or greater Lipid Profileon 04-29-2025 CHOL:HDL 5.56 Normal [facility] Comment on above: Performed By: #### L 500.4100, L500.2500 #### [facility] [address] [place], [address] Cholesterol [Mass/Vol] 210 mg/dL High <=200 [facility] Comment on above: Result Comment: Chol esterol level, Desirable <200 mg/dL Borderline high cholesterol 200-239 mg/dL High cholesterol >=240 mg/dL Recommendations of the NCEP Adult Treatment Panel for the following risk-cutoff thresholds for the [place] population. Performed By: #### L 500.4100, L500.2500 #### [facility] [address] [place], [address] Cholesterol in HDL [Mass/Vol] 38 mg/dL Low [facility] Comment on above: Result Comment: aMya onal Cholesterol Education Program (NCEP) guidelines: <40 mg/dL: Low HDL-cholesterol (major risk factor for CHD) >= 60 mg/dL: High HDL-cholesterol (negative risk factor for CHD) HDL-cholesterol is affected by a number of factors, e.g. smoking, exercise, hormones, sex and age. Performed By: #### L 500.4100, L500.2500 #### [facility] [address] [place], [address] Cholesterol in LDL [Mass/Vol] 123 mg/dL Normal [facility] Comment on above: Result Comment: Bord lwdljd=856-843 mg/dL Higher Qxjl=540 mg/dL or greater Performed By: #### L 500.4100, L500.2500 #### [facility] [address] [place], [address] Cholesterol in VLDL [Mass/Vol] 50 mg/dL High 5-40 [facility] Comment on above: Performed By: #### L 500.4100, L500.2500 #### [facility] [address] [place], [address] Triglyceride [Mass/Vol] 248 mg/dL High [facility] Comment on above: Result Comment: The drugs N-Acetylcysteine and Metamizole may falsely depress this assay. Normal range: <150 mg/dL Borderline High: 150-199 mg/dL High: 200-499 mg/dL Very High: >500 mg/dL Performed By: #### L 500.4100, L500.2500 #### [facility] [address] [place], [address] Potassium measurement (mass/ volume)Ordered By: Paul Handley on 04-29-2025 Potassium (Unsp spec) [Mass/Vol] 4.2 mmol/L 3.3-5.1 [facility] Screening total cholesterol/ high density lipoprotein (HDL) cholesterol ratioOrdered By: Paul Handley on 04-29-2025 Cholesterol.total/Lulu sterol in HDL [Mass ratio] 5.56 {ratio} [facility] Serum creatinine measurement (mass/volume)Ordered By: Paul Handley on 04-29-2025 Creatinine [Mass/Vol] 1.00 mg/dL 0.70-1.20 [facility] Serum glucose measurement (m ass/volume)Ordered By: Paul Handley on 04-29-2025 Glucose [Mass/Vol] 91 mg/dL 70-[address] [facility] Serum or plasma calcium maia urement (mass/volume)Ordered By: Paul Handley on 04-29-2025 Calcium [Mass/Vol] 9.2 mg/dL 7.6-11.[address] [facility] Serum or plasma cholesterol in HDL measurement (mass/volume)Ordered By: Paul Handley on 04-29-2025 Cholesterol in HDL [Mass/Vol] 38 mg/dL Low >40 [facility] Comment on above: National Cholesterol Education Program (NCEP) guidelines:<40 mg/dL: Low HDL-cholesterol (major risk factor for CHD)>= 60 mg/dL: High HDL-cholesterol (negative risk factor for CHD)HDL-cholesterol is affected by a number of factors, e.g. smoking, exercise, hormones, sex and age. Serum or plasma cholesterol measurement (mass/volume)Ordered By: Paul Handley on 04-29-2025 Cholesterol [Mass/Vol] 210 mg/dL High <201 [facility] Comment on above: Cholesterol level, D esirable <200 mg/dLBorderline high cholesterol 200-239 mg/dLHigh cholesterol >=240 mg/dLRecommendations of the NCEP Adult Treatment Panel for the following risk-cutoff thresholds for the [place] population. Serum or plasma urea nitroge n measurement (mass/volume)Ordered By: Paul Handley on 04-29-2025 Urea nitrogen [Mass/Vol] 18 mg/dL 4-19 [facility] Sodium levelOrdered By: Paul Handley on 04-29-2025 Sodium [Moles/Vol] 139 mmol/L 133-[address] [facility] Triglycerides measurementOrd ered By: Paul Handley on 04-29-2025 Triglyceride [Mass/Vol] 248 mg/dL High <199 [facility] Comment on above: The drugs N-Acetylcy steine and Metamizole may falsely depress this assay. Normal range: <150 mg/dLBorderline High: 150-199 mg/dLHigh: 200-499 mg/dLVery High: >500 mg/dL Venous Duplex US, Unilateral on 01-12-2025 Venous Duplex US, Unilateral [facility] [address] [place] [address] Venous Duplex US, Unilateral 01/12/25 1056 MR#: [id number] Acct: [id number] Name: RAFA GARY Rep #: [id number] : 1990 34 From: Marek Jiménez MD [...] Dictated: 01/12/25 1056 Date Transcribed: 01/12/25 152 Building And Construction Manager: Signed Normal [facility] Venous duplex ultrasound rep ortOrdered By: Marek Jiménez on 01-12-2025 US Vein [facility] [address] [facility] [place] [address] Venous Duplex US, Unilateral 01/12/25 1056 MR#: [id number] Acct: [id number] Name: RAFA GARY Rep #:[id number] : 1990 34 From: Mraek Flores Attending Dr: SHAHAB Montanez Stat us: [...] Referring Physician: Paul Handley Performed By: Sisi Avalos, RVT 01/12/25 1523 Date _ Marek Jiménez MD CC: SHAHAB Montanez; Dr. Paul Handley MD ~ Date Dictated: 01/12/25 1056 Date Transcribed: 01/12/25 1523 Building And Construction Manager: Signed [facility] Work Phone: MR/Gino 12-29-2024 MR/JULIO CÉSAR [facility] Surgery [address] [place] [address] OFFICE VISIT Date of Service: 12/29/24 MR#: [id number] Acct: [id number] Name: RAFA GARY Rep #: [id number] : 1990 Provider: SHAHAB Montanez Age/Sex: 34/M [facility] Status: Signed Intake Vital Signs 11/21/23 09:24 [...] gait normal, (more content not included)... Normal [facility] Venous duplex ultrasound rep ortOrdered By: Marek Jiménez on 12-28-2024 US Vein [facility] [address] [place] [address] Venous Duplex US - Low Extrem 12/25/24 1014 MR#: [id number] Acct: [id number] Name: RAFA GARY Rep #:[id number] : 1990 34 From: Marek Flores [...] 1536 Date _ Marek Jiménez MD CC: SHHAAB Montanez; Dr. Paul Handley MD ~ Date Dictated: 12/25/24 1014 Date Transcribed: 12/28/24 1536 Building And Construction Manager: Signed [facility] Work Phone: Venous Duplex US - Low [facility] 12-25-2024 Venous Duplex US - Low Extrem [facility] [place] [address] Venous Duplex US - Low Extrem 12/25/24 1014 MR#: [id number] Acct: [id number] Name: RAFA GARY Rep #: [id number] : 1990 34 From: Marek Jiménez MD [...] Dictated: 12/25/24 1014 Date Transcribed: 12/28/24 1536 Building And Construction Manager: Signed [facility] [facility] MR/BMS.Gino 12-01-2024 MR/BMS.BECKS [facility] Vascular Surgery [address] [place], [place] [address]ric. [address] [place] [address] OFFICE VISIT Date of Service: 12/01/24 MR#: [id number] Acct: [id number] Name: RAFA GARY Rep #: [id number] : 1990 Provider: SHAHAB Montanez Age/Sex: 34/M Location: [facility] [place] Status: Signed Intake Vital Signs 11/21/23 09:24 [...] Ears: hea (more content not included)... Normal [facility] Basophil percentageOrdered B y: Paul Handley on 06-14-2023 Bilirubin [Mass/Vol] 0.30 mg/dL 0.20-1.00 [facility] Comment on above: For patients on eltr ombopag therapy, use of Dimension [place] TBIL is not recommended. Chloride [Moles/Vol] 105 mmol/L 98-107 [facility] Cholesterol [Mass/Vol] 196 mg/dL <200 [facility] Comment on above: <200 mg/dL Desirable 200-240 mg/dL Borderline >240 mg/dL High Risk Glucose [Mass/Vol] 85 mg/dL 74-[address] [facility] Potassium [Moles/Vol] 3.7 mmol/L 3.5-5.1 [facility] Protein [Mass/Vol] 7.3 g/dL 6.4-8.[address] [facility] Sodium [Moles/Vol] 138 mmol/L 136-[address] [facility] Triglyceride [Mass/Vol] 235 mg/dL <199 [facility] Comment on above: The drugs N-Acetylcy steine and Metamizole may falsely depress this assay.Serum Triglycerides Reference Interval Normal <150 mg/dL Borderline high 150 - 199 mg/dL High 200 - 499 mg/dL Very High > or = 500 mg/dL Laboratory - Chemistry and C hemistry - challengeOrdered By: Paul Handley on 06-14-2023 ALP [Catalytic activity/Vol] 137 U/L 45-117 [facility] ALT [Catalytic activity/Vol] 36 U/L 16-61 [facility] CO2 [Moles/Vol] 28.0 mmol/L 21.0-32.0 [facility] Globulin (S) [Mass/Vol] 3.6 g/dL 2.2-4.2 [facility] Urea nitrogen/Creatinine [Mass ratio] 15.1 mg/mg 10-20 [facility] No Panel InformationOrdered By: Paul Handley on 06-14-2023 Estimated GFR (MDRD) Amer 111 mL/min >60 [facility] Comment on above: GFR Calc Estimated GFR (MDRD) Non-Af Amer 92 mL/min >60 [facility] Comment on above: Non- GFR Calc Prostate Specific Antigen Screen 0.67 ng/mL 0.00-4.00 [facility] Comment on above: This test was perfor med using the TPSA assay method for [employer] chemistry system. Values obtained with differentassay methods cannot be used interchangably.When changing PSA assays in the course of monitoring apatient, additional sequential testing should be carriedout to confirm baseline values. Serum or plasma albumin maia urement (mass/volume)Ordered By: Paul Handley on 06-14-2023 Albumin [Mass/Vol] 3.7 g/dL 3.2-5.[address] [facility] Serum or plasma albumin/glob ulin mass ratioOrdered By: Paul Handley on 06-14-2023 Albumin/Globulin [Mass ratio] 1.0 {ratio} 0.9-2.4 [facility] Serum or plasma calcium maia urement (mass/volume)Ordered By: Paul Handley on 06-14-2023 Calcium [Mass/Vol] 8.6 mg/dL 8.5-10.[address] [facility] Serum or plasma cholesterol in HDL measurement (mass/volume)Ordered By: Paul Handley on 06-14-2023 Cholesterol in HDL [Mass/Vol] 33 mg/dL >40 [facility] Comment on above: The drugs N-Acetylcy steine and Metamizole may falsely depress this assay. Reference Range HDL <40 mg/dL Low HDL Cholesterol HDL >or= 60 mg/dL High HDL Cholesterol Serum or plasma cholesterol in VLDL measurement (mass/volume)Ordered By: Paul Handley on 06-14-2023 Cholesterol in VLDL [Mass/Vol] 47 mg/dL 5-40 [facility] Serum or plasma creatinine m easurement (mass/volume)Ordered By: Paul Handley on 06-14-2023 Creatinine [Mass/Vol] 0.99 mg/dL 0.70-1.30 [facility] Comment on above: The validity of the calculated GFR & GFRAA in patients over 70 years has not been determined. Clinical correlation is essential. Serum or plasma low density lipoprotein (LDL) cholesterol measurement (mass/volume)Ordered By: Paul Handley on 06-14-2023 Cholesterol in LDL [Mass/Vol] 116 mg/dL 0-130 [facility] Serum or plasma urea nitroge n measurement (mass/volume)Ordered By: Paul Handley on 06-14-2023 Urea nitrogen [Mass/Vol] 15 mg/dL 7-18 [facility] Thin prep Papanicolaou smear with manual screeningOrdered By: Paul Handley on 06-14-2023 Thin prep Papanicolaou smear with manual screening 19 U/L 15-37 [facility] Thin prep Papanicolaou smear with manual screening 5 5-[address] [facility] [address] Abdomen and Pelvis with I V Contraston 05-01-2023 CT Abdomen and Pelvis W contrast IV Please click on the link to view the study images Normal ZA[facility] Work Phone: CT Abdomen and Pelvis W contrast IV Normal PG-Ugykfey-Jkk [facility] Work Phone: IO UA (automated w/o microsc opy)on 04-17-2023 Protein (U) [Mass/Vol] Negative [employer] Work Phone: IO UA (automated w/o microscopy) Negative [employer] Work Phone: IO UA (automated w/o microscopy) Normal (0.2-1.0 mg/dl) RV-[employer]orja[facility]mo [facility] Work Phone: IO UA (automated w/o microscopy) 5.5 1 [employer] Work Phone: IO UA (automated w/o microscopy) 1.030 1 [employer] Work Phone: IO UA (automated w/o microscopy) Clear [employer] Work Phone: IO UA (automated w/o microscopy) Yellow [employer] Work Phone: Office Visit (Urology)on Follow-up visit [...] Enrgy level is good and libido is "just Ok"... No hx of kidney stones. Review of [...] Vital Signs Recorded: 17Apr2023 07:34AM Heart Rate65 Ljyqatxt806 Uwsdyacgb50 Height6 ft Jpqkqg955 lb 6 oz BMI Neivkdadne75.65 kg/m2 BSA Calculated2.27 Tobacco Useb) No PHQ-2 [...] Apr 17 2023 7:45AM EST (Author) Normal [facility] Tobacco Screening.on 023 Adult depression screening assessment No [employer] Work Phone: Fall risk assessment a) No falls within the last year [employer] [facility] Work Phone: Tobacco use status CPHS b) No M E-Scdubtr-Wxf [facility] Work Phone: Culture, urineOrdered By: Dr Az Garcia on 04-11-2023 Bacteria identified Cx Nom (U) Culture exhibits no growth. [facility] Culture, urineOrdered By: Obed Garcia on 04-09-2023 Bacteria identified Cx Nom (U) Culture exhibits no growth. [facility] Basophil percentageon 2021 Chloride [Moles/Vol] 102 mmol/L 98-107 [facility] Work Phone: Glucose [Mass/Vol] 98 mg/dL 74-[address] [facility] Work Phone: Potassium [Moles/Vol] 4.6 mmol/L 3.5-5.1 [facility] Work Phone: Sodium [Moles/Vol] 138 mmol/L 136-[address] [facility] Work Phone: WBC (Bld) [#/Vol] 6.1 10*3/uL 4.4-11.[address] [facility] Work Phone: Blood erythrocytes count (nu mber/volume)on 09-18-2022 RBC (Bld) [#/Vol] 5.19 10*6/uL 4.6-6.2 [facility] Work Phone: Blood hemoglobin measurement (mass/volume)on 09-18-2022 Hemoglobin (Bld) [Mass/Vol] 15.4 g/dL 13.0-16.5 [facility] Work Phone: Blood platelet mean volumeon 09-18-2022 Platelet mean volume (Bld) [Entitic vol] 9.3 fL 6.2-12.0 [facility] Work Phone: Determination of erythrocyte mean corpuscular volume (MCV)on 09-18-2022 MCV (RBC) [Entitic vol] 88.6 fL 80-94 [facility] Work Phone: Hematocrit Auto (Bld) [Volum e fraction]on 09-18-2022 Hematocrit (Bld) [Volume fraction] 46.0 % 40-54 [facility] Work Phone: Laboratory - Chemistry and C hemistry - challengeon 09-18-2022 CO2 [Moles/Vol] 29.0 mmol/L 21.0-32.0 [facility] Work Phone: Free T4 [Mass/Vol] 1.05 ng/dL 0.76-1.[address] [facility] Work Phone: Urea nitrogen/Creatinine [Mass ratio] 15.2 mg/mg 10-20 [facility] Work Phone: Laboratory - Hematology and Cell countson 09-18-2022 Erythrocyte distribution width (RBC) [Entitic vol] 38.8 fL 35.1-43.9 [facility] Work Phone: Erythrocyte distribution width (RBC) [Ratio] 12.0 % 11.6-14.6 [facility] Work Phone: MCH (RBC) [Entitic mass] 29.7 pg 27.0-32.0 [facility] Work Phone: MCHC Auto (RBC) [Mass/Vol]on 09-18-2022 MCHC (RBC) [Mass/Vol] 33.5 g/dL 32-36 [facility] Work Phone: No Panel Informationon 09-18 Estimated GFR (MDRD) Amer 105 mL/min >60 [facility] Work Phone: Comment on above: GFR Calc Estimated GFR (MDRD) Non-Af Amer 87 mL/min >60 [facility] Work Phone: Comment on above: Non- GFR Calc Free Triiodothyronine (T3) pg/dL 3.8 pg/mL 2.18-3.98 [facility] Work Phone: Thyroid Stimulating Hormone (TSH) 1.70 uIU/mL 0.358-3.74 [facility] Work Phone: Platelets bldon 09-18-2022 Platelets (Bld) [#/Vol] 273 10*3/uL 150-450 [facility] Work Phone: Serum or plasma calcium maia urement (mass/volume)on 09-18-2022 Calcium [Mass/Vol] 9.0 mg/dL 8.5-10.1 [facility] Work Phone: Serum or plasma creatinine m easurement (mass/volume)on 09-18-2022 Creatinine [Mass/Vol] 1.05 mg/dL 0.70-1.30 [facility] Work Phone: Comment on above: The validity of the calculated GFR & GFRAA in patients over 70 years has not been determined. Clinical correlation is essential. Serum or plasma urea nitroge n measurement (mass/volume)on 09-18-2022 Urea nitrogen [Mass/Vol] 16 mg/dL 7-18 [facility] Work Phone: Thin prep Papanicolaou smear with manual screeningon 09-18-2022 Thin prep Papanicolaou smear with manual screening 7 5-15 [facility] Work Phone: CNOVon 01-08-2022 CNOV Office Visit (GENSWS) REYNAKAYLARAFA Mercado ([id number]) 1990 M Date Time Provider Department 01/08/22 10:30 AM ELVIA RAYA During your visit today, we recorded the following information about you: Temperature Pulse Blood pressure Weight 98.1 degrees 90/minute 124/72 104.6 kg Elvia Raya PA-C 01/08/2022 11:25 AM Signed FOLLOW UP VISIT - APPENDICITIS NAME: Rafa Gary CLINIC NO.: [id number] DATE OF SERVICE: 01/08/2022 : 1990 REFERRING PHYSICIAN: Paul Handley MD, Rafa is a patient I am following for acute appendicitis. Dr. Sommer performed a laparoscopic appendectomy on 12/31/21 at [facility]. The patient's appendix demonstrated acute necrotizing [...] to your office visit today with the [facility] General Surgeons. INSTRUCTIONS FOLLOWING YOUR RECENT SURGERY [...] you should contact our office immediately @ [phone] and ask to be transferred to the General Surgery department. Referring Provider: LAZARA SOMMER [[id number]] Allergies As of Date: 01/08/2022 Noted Allergy Reaction PENICILLINS 07/11/2012 2 - Rash Date Reviewed: 01/08/2022 Reviewed by: Elvia Raya PA-C - Fully Assessed Reason for [...] to your office visit today with the [facility] General Surgeons. INSTRUCTIONS FOLLOWING YOUR RECENT SURGERY [...] stools persis (more content not included)... Normal [facility] RAFA GARY ([id number]) 1990 M Date Time Provider Department 01/02/22 LAZARA SOMMER During your visit today, we recorded the following information about you: Daphne Myers Admin Sec 01/02/2022 2:41 PM Signed Pt has [employer] insurance that is OON for [facility]. His primary care provider is not an [...] Fully Assessed Reason for Visit: Patient Question [2805] Prescriptions as of 01/02/2022 - hydrocodone-acetamin ophen (NORCO) 5-325 mg per tablet Take 1 tablet by mouth every 6 hours as needed for Pain. Problem List As Of Date 01/02/2022 Noted Resolved Verruca [B07.9] 07/29/2012 Encounter Status:Closed by DOLORES MERIDA on 01/02/22 Normal [facility] Vital Signs Date Time Vital Sign Value Performing Clinician Theodore garcia 06-16-2025 13:13-0400 Body temperature 99.1 [degF] Dr. Paul Handley MD Work Phone: [facility] 06-16-2025 13:13-0400 Body weight 106.[address] Paul Handley MD Work Phone: 0(485)926-614870 [address] 06-16-2025 13:13-0400 Diastolic blood pressure 82 mm[Hg] Dr. Paul Handley MD Work Phone: 5(937)925-686711 [place] [address] 06-16-2025 13:13-0400 Heart rate 90 /min Dr. Paul Handley MD Work Phone: 1(491)754-013970 [address] 06-16-2025 13:13-0400 Respiratory rate 16 /min Dr. Paul Handley MD Work Phone: 8(214)562-082870 [address] 06-16-2025 13:13-0400 SaO2% (BldA) [Mass fraction] 97 % Dr. Paul Handley MD Work Phone: 8(050)036-421291 [place] [address] 06-16-2025 13:13-0400 Systolic blood pressure 117 mm[Hg] Dr. Paul Handley MD Work Phone: [facility] 05-03-2025 09:35-0400 Body height 182.[address] Paul Handley MD Work Phone: [facility] 12-29-2024 08:44-0400 Body temperature 97.8 [degF] Dr. Paul Handley MD Work Phone: 1(889)347-644470 [address] 12-29-2024 08:44-0400 Body weight 103.[address] Paul Handley MD Work Phone: [facility] 12-29-2024 08:44-0400 Diastolic blood pressure 70 mm[Hg] Dr. Paul Handley MD Work Phone: [facility] 12-29-2024 08:44-0400 Heart rate 82 /min Dr. Paul Handley MD Work Phone: [facility] 12-29-2024 08:44-0400 Respiratory rate 16 /min Dr. Paul Handley MD Work Phone: [facility] 12-29-2024 08:44-0400 SaO2% (BldA) [Mass fraction] 97 % Dr. Paul Handley MD Work Phone: [facility] 12-29-2024 08:44-0400 Systolic blood pressure 121 mm[Hg] Dr. Paul Handley MD Work Phone: 2([phone])[phone] [place] [address] 12-01-2024 11:32-0500 Body temperature 98.2 [degF] Dr. Paul Handley MD Work Phone: [facility] 12-01-2024 11:32-0500 Body weight 105.[address] Paul Handley MD Work Phone: [facility] 12-01-2024 11:32-0500 Diastolic blood pressure 80 mm[Hg] Dr. Paul Handley MD Work Phone: [facility] 12-01-2024 11:32-0500 Heart rate 79 /min Dr. Paul Handley MD Work Phone: [facility] 12-01-2024 11:32-0500 Respiratory rate 16 /min Dr. Paul Handley MD Work Phone: [facility] 12-01-2024 11:32-0500 SaO2% (BldA) [Mass fraction] 96 % Dr. Paul Handley MD Work Phone: [facility] 12-01-2024 11:32-0500 Systolic blood pressure 131 mm[Hg] Dr. Paul Handley MD Work Phone: [facility] 11-21-2023 15:42-0500 Body temperature 98.3 [degF] Dr. Paul Handley Work Phone: [facility] 11-21-2023 15:42-0500 Diastolic blood pressure 68 mm[Hg] Dr. Paul Handley Work Phone: [facility] 11-21-2023 15:42-0500 Heart rate 75 /min Dr. Paul Handley Work Phone: [facility] 11-21-2023 15:42-0500 Respiratory rate 16 /min Dr. Paul Handley Work Phone: [facility] 11-21-2023 15:42-0500 SaO2% (BldA) [Mass fraction] 96 % Dr. Paul Handley Work Phone: [facility] 11-21-2023 15:42-0500 Systolic blood pressure 116 mm[Hg] Dr. Paul Handley Work Phone: [facility] 11-21-2023 09:24-0500 Body height 182.[address] Paul Handley Work Phone: [facility] 11-21-2023 09:24-0500 Body mass index (BMI) [Ratio] 32.3 kg/m2 Dr. Paul Handley Work Phone: [facility] 11-21-2023 09:24-0500 Body weight 108.[address] Paul Handley Work Phone: [facility] 10-22-2023 08:21-0500 Body mass index (BMI) [Ratio] 33.1 kg/m2 Dr. Paul Handley Work Phone: [facility] 10-22-2023 08:21-0500 Body temperature 97.4 [degF] Dr. Paul Handley Work Phone: [facility] 10-22-2023 08:21-0500 Body weight 110.[address] Paul Handley Work Phone: [facility] 10-22-2023 08:21-0500 Diastolic blood pressure 77 mm[Hg] Dr. Paul Handley Work Phone: [facility] 10-22-2023 08:21-0500 Heart rate 72 /min Dr. Paul Handley Work Phone: [facility] 10-22-2023 08:21-0500 Respiratory rate 18 /min Dr. Paul Handley Work Phone: [facility] 10-22-2023 08:21-0500 SaO2% (BldA) [Mass fraction] 98 % Dr. Paul Handley Work Phone: [facility] 10-22-2023 08:21-0500 Systolic blood pressure 119 mm[Hg] Dr. Paul Handley Work Phone: [facility] 04-17-2023 07:34-0400 Body height 182.88 cm Blaine Childressk Work Phone: YZ-Nrxytmu-Dftpvxm Work Phone: 04-17-2023 07:34-0400 Body mass index (BMI) [Ratio] 31.65 kg/m2 Blaine Chapman Chavarria Work Phone: CB-Cvxzbky-Iwjnqbi Work Phone: 04-17-2023 07:34-0400 Body surface area Derived from formula 2.27 m2 Blaine Chapman Chavarria Work Phone: LP-Jvbtppm-Fioyhqg Work Phone: 04-17-2023 07:34-0400 Body weight 105.86 kg Blaine Chavarria Work Phone: UZ-Giatdcc-Tvlhwmq Work Phone: 04-17-2023 07:34-0400 Diastolic blood pressure 77 mm[Hg] Blaine Chavarria Work Phone: GI-Ztppmnh-Docublc Work Phone: 04-17-2023 07:34-0400 Heart rate 65 /min Blaine Chapman Chavarria Work Phone: DO-Eryxvnf-Pubglaa Work Phone: 04-17-2023 07:34-0400 Systolic blood pressure 124 mm[Hg] Blaine Chapman Chavarria Work Phone: GZ-Jojesrj-Nrwyfzq Work Phone: 01-08-2022 10:46-0400 Body temperature 98.1 [degF] Elvia Elver PA-C Work Phone: [facility] 01-08-2022 10:46-0400 Body weight 104.6 kg Elvia [place] PA-C Work Phone: [facility] 01-08-2022 10:46-0400 Diastolic blood pressure 72 mm[Hg] Elvia [place] PA-C Work Phone: [facility] 01-08-2022 10:46-0400 Heart rate 90 /min Elvia Elver PA-C Work Phone: [facility] 01-08-2022 10:46-0400 SaO2% (BldA) [Mass fraction] 100 % Elvia [place] PA-C Work Phone: [facility] 01-08-2022 10:46-0400 Systolic blood pressure 124 mm[Hg] Elvia Elver PA-C Work Phone: [facility] Encounters Encounter Date Encounter Type Care Provider Facility Start: 09-02-2025 ambulatory Paul Handley Facility:[facility] Start: 09-02-2025 ambulatory Paul Handley Facility:[facility] Start: 06-16-2025 End: 06-16-[address] Marek Jiménez MD -[facility] Work Phone: Start: 06-16-2025 End: 06-16-[address] Paul Handley MD Work Phone: -[facility] Start: 05-05-2025 Encounter for genera l adult medical examination without abnormal findings Paul Handley [facility] Start: 04-29-2025 End: 04-29-[address] Paul Handley MD Work Phone: -[facility] Start: 04-29-2025 End: 04-29-[address] Paul Handley MD -[facility] Start: 04-29-2025 End: 04-29-2025 ambulatory Paul Handley Facility:[facility] Start: 01-12-2025 Non-patient / Non-visit Dr. Marek rowley MD -[facility] Start: 01-12-2025 End: 01-12-[address] Paul Handley MD Work Phone: [facility] Work Phone: Start: 01-12-2025 End: 01-12-2025 Patient encounter procedure Norah CORNEJO -[facility] Work Phone: Start: 01-12-2025 End: 01-12-2025 ambulatory Norah Kan Facility:[facility] Start: 12-29-2024 End: 12-29-2024 Patient encounter procedure Norah Kanopal CORNEJO [facility] Work Phone: Start: 12-29-2024 End: 12-29-2024 ambulatory Paul Handley Facility:[facility] Start: 12-25-2024 Non-patient / Non-visit Dr. Marek rowley MD -[facility] Start: 12-25-2024 End: 12-25-[address] Paul Handley MD Work Phone: [facility] Work Phone: Start: 12-25-2024 End: 12-25-2024 Patient encounter procedure Norah Kanopal CORNEJO -[facility] Work Phone: Start: 12-25-2024 End: 12-25-2024 ambulatory Paul Handley Facility:[facility] Start: 12-01-2024 End: 12-01-2024 Patient encounter procedure Norah Kanopal CORNEJO [facility] Work Phone: Start: 12-01-2024 End: 12-01-2024 ambulatory Paul Handley Facility:[facility] Start: 11-21-2023 Non-patient / Non-visit Dr. Shahab Handley Work Phone: [facility] Start: 11-21-2023 End: 11-21-2023 Admission to same day surgery center Dr. Paul Handley Work Phone: [facility] Start: 11-21-2023 End: 11-21-[address] Paul Handley Work Phone: [facility] Work Phone: Start: 10-22-2023 End: 10-22-[address] Paul Handley Work Phone: [facility] Work Phone: Start: 06-14-2023 End: 06-14-2023 ambulatory [facility] Work Phone: Start: 06-14-2023 End: 06-14-2023 [facility] Start: 05-02-2023 Chart Update Blaine Chavarria Work Phone: NB-Wxohemc-Xolrvrn Work Phone: Start: 05-01-[address] Blaine Chavarria II Facility:[id number] Start: 04-26-2023 End: 04-26-2023 ambulatory [facility] Work Phone: Start: 04-26-2023 End: 04-26-2023 Patient encounter procedure [facility]-Ultrasound, [facility] Work Phone: Start: 04-17-2023 Office outpatient ne w 45 minutes Blanie Chavarria Work Phone: HQ[facility]Jnikqar-Ubzkcsc Work Phone: Start: 04-17-2023 ambulatory MD BLAINE CHAVARRIA Fa cility:[id number] Start: 04-09-2023 End: 04-09-2023 ambulatory [facility] Work Phone: Start: 04-09-2023 End: 04-09-2023 Patient encounter procedure [facility]-Laboratory, Specimen Start: 09-18-2022 End: 09-18-2022 ambulatory [facility] Work Phone: Start: 09-18-2022 End: 09-18-2022 Patient encounter procedure [facility] Start: 01-08-2022 End: 01-08-2022 Patient encounter procedure Elvia Raya PA-C Work Phone: General Surgery Comment on above: Aftercare following surgery (Primary Dx); S/P appendectomy Procedures Date Procedure Procedure Detail Performing Clinician Start: 11-21-[address] Paul Handley Work Phone: Start: 04-26-2023 Ultrasonography of abdomen Start: 04-09-2023 Urine culture Appendectomy Blaine Chavarria Work Phone: History of appendectomy S/P appendectomy Elvia Raya PA-C Work Phone: Urine culture Plan of Treatment Date Care Activity Detail Author Start: 11-21-2023 Patient discharge [facility] Start: 05-15-2023 FUV, Provider: Blaine Chavarria II, Status: Pen, Time: 7:45 AM FUV, Provider: Blaine Chavarria II, Status: Pen, Time: 7:45 AM YL-Kahcsmz-Msogdku Work Phone: Start: 11-21-2021 COVID-19 VACCINE (3 - Booster for Pfizer series) COVID-19 VACCINE (3 - Booster for Pfizer series) [facility] Start: 06-21-2021 Influenza vaccination INFLUENZA (#1) [facility] Start: 2008 Urine microalbumin profile DTAP,TDAP,TD (1 - Tdap) [facility] Start: 2007 HEPATITIS C SCREENING HEPATITIS C SC MAYTE [facility] Start: 2007 HIV SCREENING HIV SCREENING [facility] Start: 2001 Adult depression screening assessment DEPRESSION SCREENING [facility] Patient referral [facility] Work Phone: Immunizations Immunization Date Immunization Notes Care Provider Jessica levine 06-21-2021 Covid (Pfizer) [facility] 05-30-2021 Covid (Pfizer) [facility] 04-12-2015 tetanus toxoid, redu jeannie diphtheria toxoid, and acellular pertussis vaccine, adsorbed [facility] Payers Date Payer Category Payer Self-pay [id number] 2024 Unknown [id number] 1990 Unknown [id number] 1990 Unknown [id number] Unknown ROXANN [id number] Unknown [id number] Unknown [facility] [employer] [id number] Unknown [facility] [employer] Unknown [id number] Unknown [id number] Unknown [id number] Unknown [id number] Unknown [id number] Unknown [id number] Unknown [id number] Unknown [id number] Unknown [id number] Unknown [id number] Unknown [id number] Social History Date Type Detail Facility Start: 07-11-2012 End: 05-03-2025 Tobacco smoking status NHIS Never smoked tobacco [facility] Work Phone: Start: 07-11-2012 Tobacco use and exposure Smokeless tobacco non-user [facility] Work Phone: Start: 01-08-2022 Alcohol intake Lifetime non-d claudy (finding) [facility] Start: 01-08-2022 History SDOH Alcohol Frequency 1 [facility] Start: 1990 Sex Assigned At Not on file [facility] Start: 12-29-2021 End: 01-08-2022 Exposure to SARS-CoV-2 (event) Not sure [facility] Start: 12-30-2021 End: 11-13-2023 Tobacco smoking status NHIS Unknown if ever smoked [facility] Start: 1990 Sex Assigned At Male [facility] Never a smoker [facility] Start: 01-07-2025 End: 01-18-2025 Sex Male (finding) [facility] Medical Equipment Procedure Code Equipment Code [...] Assessment Result Facility 11-21-2023 Cognitive function Voice/Name [facility] Work Phone: Clinical Notes 01-08-2022 to 09-02-2025 Note Date & Type Note Facility 09-02-2025 Note [facility] Medical Records Department [address] [place] [address] History Physical Exam 09/02/25 1252 MR#: [id number] Acct: [id number] Name: RAFA GARY Rep #: [id number] : 1990 34 From: Marek Jiménez MD PCP: Dr. Paul Handley MD [place] [facility] [place] [facility] HPI - General HPI Narrative RAFA GARY, is a 34 M who presents with bilateral LE painful varicose veins, tightness/heaviness below knee after long periods standing. He has been wearing 20-30 mmHg compression for several months with only minimal improvement. He denies any open wounds or skin color changes. [facility] Medical History Wears glasses Wears dentures History of IBS Non-smoker Leg cramps PONV (postoperative nausea and vomiting) Umbilical hernia Acute appendicitis IBS (irritable bowel syndrome) Home Medications ???Medication ???Instructions ???Recorded ???Last Taken ???Type eluxadoline 100 mg tablet (Viberzi) 100 mg PO DAILY 12/30/21 History rosuvastatin 5 mg tablet 5 mg PO QDAY 06/16/25 Unknown Hist ory diazepam 2 mg tablet (Valium) 2 mg PO ONCE PRN anxiety #1 TAB Unknown Rx Allergy/AdvReac Type Severity Reaction Status Date / Time Penicillins (PCN) Allergy Rash Verified 06/16/25 13:12 Family History Uncle Colon cancer 2022 Father Thyroid disorder Grandfather Thyroid disorder Surgical History History of umbilical hernia repair History of hand surgery S/P appendectomy Social History Smoking Status: Never smoker ROS Constitutional Constitutional: Denies chills, fever(s), frequent falls, lethargy or weakness Eyes Eyes: Denies blind spots, change in vision or loss of vision ENT HEENT: Denies bleeding gums, hoarseness or sore throat Cardiovascular Cardiovascular: Denies abdominal pain, bluish discoloration of hand/feet, chest pain with activity, claudication, cold extremities, cyanosis, dyspnea on exertion, erythema on extremities, irregular heart rhythm, leg edema, leg ulcers, numbness in extremities or weakness in extremities Respiratory/Chest Respiratory/Chest: Denies cough, excessive phlegm production, shortness of breath at rest, shortness of breath with exertion or wheezing Gastrointestinal Gastrointestinal: Denies anorexia, change in stool character, constipation, diarrhea, melena or rectal bleeding Genitourinary Genitourinary: Denies dysuria or hematuria Musculoskeletal Musculoskeletal: Denies abnormal gait Integumentary Integumentary: Reports other Details: ; Denies erythema, non-healing lesions or wounds Neurologic Neurologic: Denies abnormal speech, focal weakness, headache(s), loss of vision, numbness, paresthesias or sensory deficit Hematologic/Lymphatic Hematologic/Lymphatic: Denies easy bleeding, easy bruising or lymphadenopathy Vital Signs Vital Signs Vital Signs: Weight Weight: 235 lb Body Mass Index (BMI) 31.8 Physical Exam Const alert, oriented x3, no apparent distress and healthy appearing General Appearance: cooperative; Negative for combative or lethargic Orientation / Consciousness: awake Exam Limitations: no limitations HEENT Head and Scalp: normocephalic and atraumatic Eyes EOMs intact bilaterally General Eye: normal appearance of both eyes Neck full ROM General: trachea midline Resp normal respiratory effort and no use of accessory muscles Effort and Inspection: Negative for labored, stridor or audible wheezes Cardio regular rate and regular rhythm Back/Spine Cervical Spine: cervical ROM normal Extremity full ROM, normal capillary refill and no clubbing, cyanosis or edema Skin no rashes or lesions noted and no wounds Neuro oriented x3, CN's II-XII intact bilaterally, no focal motor deficits and no sensory deficits noted Psych thought process normal, cooperative, affect normal, speech normal and activity/motor behavior normal Results Lab / Micro Data 09/02/25 10:22 09/02/25 10:22 Labs: Laboratory Results - last 24 hr 09/02/25 10:22: WBC 7.7, RBC 4.90, Hgb 14.8, Hct 43.7, MCV 89.2, MCH 30.2, MCHC 33.9, RDW Std Deviation 39.2, RDW Coeff of Alex 12.0, Plt Count 240, MPV 9.1, Sodium 139, Potassium 4.4, Chloride 105, Carbon Dioxide 27.3, Anion Gap 7, BUN 15, Creatinine 0.90, Estim Creat Clear Calc 144.53, Est GFR (MDRD) Non-Af 114, BUN/Creatinine Ratio 16.0, Glucose 120 H, Calcium 8.8 Assessment Plan Assessment/Plan (1) Varicose veins of bilateral lower extremities with pain: PLAN: -bilateral GSV thermal ablation 09/02/25 1253 Cosigner Signature (if applicable): CC: Dr. Marek Jiménez MD (more content not included)... [facility] 12-01-2024 Evaluation note Diagnosis Onset Date Resolution Varicose veins of bilateral lower extremities with pain acute November 212024 11:30am Varicose veins of bilateral lower extremities with pain acute December 8:32am [facility] Work Phone: 1(774) 660-395802-01-2024 Discharge summary Author Joey Bonilla [facility] November 21, 2023 12:46pm Note Date/Time November 21, 2023 1 2:45pm [facility] Medical Records Department [address] [place] [address] Instructions for Home/Discharge Instructions 11/21/23 1243 MR#: [id number] Acct: [id number] Name: RAFA GARY Rep #:[id number] : 1990 33 From: Joey mc [...] to schedule 2 week follow up appointment. [phone] Test Results: Test results from this visit [...] CC: Dr. Paul Handley MD ~ Signed [facility] Work Phone: 1(270) 562-525602-01-2024 Procedure [facility] 11-21-2023 History and physical note Author Joey Bonilla [facility] November 21, 2023 10:19am Note Date/Time November 21, 2023 1 0:19am [facility] Medical Records Department [address] [place] [address] [place] [address] History & Physical Exam 11/21/23 1019 MR#: [id number] Acct: [id number] Name: RAFA GARY Rep #:[id number] : 1990 33 From: Joey mc MD PCP: Dr. 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 Joey Bonilla MD Pager: [facility] [address] [place] [address], [address] [place] [address] Office: I have examined the patient and the H&P has been reviewed. There are no clinicalchanges since date of exam. 11/21/23 1019 <Electronically signed by Joey Bonilla MD> Cosigner Signature (if applicable): CC: Dr. Joey Bonilla MD; Dr. Paul Handley MD~ Signed [facility] Work Phone: 1(403) 918-648303-21-2022 NoteHNO ID: [id number] Author: Elvia Raya PA-C Service: ? Author Type: Physician Jailkeeper Type: Progress Notes Filed: 01/08/2022 11:25 AM Note Text: FOLLOW UP VISIT - APPENDICITIS NAME: Rafa Li [facility] NO.: [id number] DATE OF SERVICE: 01/08/2022 : 1990 REFERRING PHYSICIAN: Paul Handley MD, MD Rafa is a patient I am following for acute appendicitis. Dr. Sommer performed a laparoscopic appendectomy on 12/31/21 at [facility]. The patient's appendix demonstrated acute necrotizing [...] instructed to follow-up with me as needed. [facility] Instructions* Patient Instructions* Elvia Raya PA-C - 01/08/2022 11:01 AM EDT The following instructions are important for you related to your office visit today with the [facility] General Surgeons. INSTRUCTIONS FOLLOWING YOUR RECENT SURGERY [...] you should contact our office immediately @ [phone] and ask to be transferred to the General Surgery department. [facility] History of Present illness Narrative* Elvia Raya PA-C - 01/08/2022 10:47 AM EDT FOLLOW UP VISIT - APPENDICITIS NAME: Rafa Craftradha [facility] NO.: [id number] DATE OF SERVICE: 01/08/2022 : 1990 REFERRING PHYSICIAN: Paul Handley MD, Rafa is a patient I am following for acute appendicitis. Dr. Sommer performed a laparoscopic appendectomy on 12/31/21 at [facility]. The patient's appendix demonstrated acute necrotizing [...] instructed to follow-up with me as needed. Elvia Raya PA-C [facility]* Diagnosis Aftercare following surgery- Primary Encounter for other specified aftercare S/P appendectomy Other postprocedural status documented in this encounter [facility] noteNo assessment information availableWFostoria City [facility] Work Phone: Evaluation note* Diagnosis Onset Date Resolution Status Umbilical hernia acute [facility] Work Phone: History of Present illness [...] Enrgy level is good and libido is "just Ok"... No hx of kidney stones. [facility] Work Phone: History of Present illness NarrativePatient [...] Enrgy level is good and libido is "just Ok"... No hx of kidney stones. [employer] Work Phone: Reason for referral (narrative)No reason for referral information availableWFostoria City Hospital Work Phone: Summary Purpose Family History [...] No December 30, 2021 11:34pm Power of Tractor Distributor No December 30 11:34pm Advance Directive Response Recorded Date/ Time Living Will No December 31, 2021 12:34am Power of Tractor Distributor No December 31 12:34am Advance Directive Response Recorded Date/ Time Living Will No November 13 8:48am Power of Tractor Distributor No November 13, 2023 8:48am Chief Complaint [...] extre mity wit January 12, 2025 10:52am Chief Complaint Admit Date STAT Varicose veins of right lower extre mity wit January 12, 2025 10:52am Chief Complaint Admit Date Venous insufficiency June 16, 2025 1 2:59pm Additional Source Comments Source Comments (unrecognize d section and content) In the event this informatio n is protected by the Federal Confidentiality of Alcohol and Drug Abuse Patient Records regulations: The Federal rules restrict any use of the information to criminally investigate or prosecute any alcohol or drug abuse patient.[facility] Reason for Visit (unrecogniz ed section and content) Reason Comments Post Op Follow Up appendectomy Care Teams (unrecognized sec tion and content) Senior Controls Engineer Relationship Specialty Start Date End Date Paul Handley MD [address] [facility] [address] [place] [address] PCP - General Family Practice 01/08/22 Team [...] 01, 2024 End: December 01, 2024 SHAHAB Montanez Attending Provider Active Star t: December 01, [...] Provider Active S tart: January 12, 2025 Team Status: Active Member Role/Relationship Status Dates Dr. Paul Handley MD Primary Care Provider Active Team Status: Inactive Member Role/Relationship Status Dates Dr. Paul Handley MD Primary Care Provider Active Start: January 12, 2025 End: January 12, 2025 SHAHAB Montanez Attending Provider Active Star t: January 12, 2025 End: January 12, 2025 SHAHAB Montanez Referring Provider Active Star t: January 12, 2025 End: January 12, 2025 Team Status: Active Member Role/Relationship Status Dates Dr. Paul Handley MD Primary Care Provider Active Start: January 12, 2025 Dr. Marek Jiménez MD Attending Provider Active S tart: January 12, 2025 SHAHAB Montanez Referring Provider Active Star t: January 12, 2025 Team Status: Inactive Member Role/Relationship Status Dates Dr. Paul Handley MD Primary Care Provider Active Start: April 29, 2025 End: April 29, 2025 Dr. Paul Handley MD Attending Provider Active Start: April 29, 2025 End: April 29, 2025 Dr. Paul Handley MD Referring Provider Active Start: April 29, 2025 End: April 29, 2025 Team Status: Inactive Member Role/Relationship Status Dates Dr. Paul Handley MD Primary Care Provider Active Start: April 29, 2025 End: April 29, 2025 Dr. Paul Handley MD Attending Provider Active Start: April 29, 2025 End: April 29, 2025 Dr. Paul Handley MD Referring Provider Active Start: April 29, 2025 End: April 29, 2025 Team Status: Inactive Member Role/Relationship Status Dates Dr. Paul Handley MD Primary Care Provider Active Start: June 16, 2025 End: June 16, 2025 Dr. Paul Handley MD Referring Provider Active Start: June 16, 2025 End: June 16, 2025 Dr. Marek Jiménez MD Attending Provider Active S tart: June 16, 2025 End: June 16, 2025 (unrecognized sect ion and content) No Status Records FoundNo Status Records FoundNo Status Records FoundNo Status Records FoundNo Status Records Found INFORMATION SOURCE (unrecogn ized section and content) DATE CREATED AUTHOR 01/08/2022 [facility] DATE CREATED AUTHOR AUTHOR'S ORGANIZ ATION 04/18/2023 [employer] DATE CREATED AUTHOR AUTHOR'S ORGANIZ ATION 04/20/2023 [facility] DATE CREATED AUTHOR AUTHOR'S ORGANIZ ATION 05/04/2023 [facility] DATE CREATED AUTHOR AUTHOR'S ORGANIZ ATION 09/02/2025 [facility] Goals (unrecognized section and content) Goals [...] BE BASED ON THE PRIMARY CLINICAL RECORDS. [facility] [employer] [facility]. provides no warranty or guarantee of the accuracy or completeness of information in this document.
== END | disposition home or self-care (01) ==
LOC: CVS 07:49
PROVIDERS: PCP Family Medicine; Referring Provider Surgery Trauma Surgery; Visit Provider Surgery Trauma Surgery
DX: I83.813 Varicose veins of bilateral lower extremities with pain (principal)
CPT/HCPCS: 93970